=== PATIENT | male | born 1935 | race Caucasian/White ===

== ENCOUNTER 2018-08-20 08:37 | Emergency (ER) | payer MEDICARE, OTHER ==
--- OUTSIDE RECORDS SUMMARY | 2018-08-20 08:57 | XMS REPORT ---
:1935 External Reference #:[id number] Author Organization [employer] Address [address] [facility] [place] [address] [place] [address] Phone [phone] Care Team Providers Name Role Phone Leandro Rodriguez MD Primary Care Physician Unavailable Payers Type Date Identification Numbers Payment Provider Subscriber Medicare Primary Policy Number: [id number] Medicare Fish Amezquita PayID: [id number] [address] [place] [address] Commercial Policy Number: [id number] [facility] Fish [place] PayID: [id number] [address] [place] [address] Problems Date Description Provider Status Onset: 08/14/2018 History of cerebrovascular Leandro Rodriguez, 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 Beatrice,FACP Onset: 08/14/2018 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, Active joint Beatrice,FACP Note: OA Onset: 08/14/2018 Orthostatic hypotension Leandro Rodriguez M.D.,FACP Active Family History Date Family Member(s) Problem(s) Comments Father Coronary Artery Disease (CAD) : (age 55 Years) Father due to [place] : (age 74 Years) Mother due to Natural Causes Mother Cervical Cancer Children 4 First Son Diabetes Type I Siblings 4 Social History Type Date Description Comments Marital Status Lives With Occupation Retired Cigarette Use Never Smoked Cigarettes ETOH Use 08/14/2018 Consumes 1 glass of wine per day Smoking Patient has never smoked Recreational Drug Use Denies Drug Use General Hx Text 4 kids Allergies, Adverse Reactions, Alerts Date Description Reaction Status Severity Comments 08/14/2018 Penicillins active Moderate Medications Medication Date Status Form Strength Qnty SIG Indications Ordering Provider Fludrocortisone 08/14/ Active Tablets 0.1mg 30tabs 1 by Leandro Acetate 2018 mouth Estrellita Rodriguez, every M.D.,FACP morning Eliquis 00/ Active Tablets 2.5mg 30tabs 1 tablet Leandro 0000 by mouth Estrellita Rodriguez, daily M.D.,FACP Immunizations CPT Code Status Date Vaccine Lot # [id number] Given 08/14/2018 Influenza Virus Vaccine, Quadrivalent, Split, [id number] Preservative Free Vital Signs Date Vital Result Comment 08/14/2018 Height 66 inches 5'6" Weight 128.00 lb Heart Rate 71 /min BP Systolic Sitting 80 mmHg BP Diastolic Sitting 50 mmHg BP Systolic Standing 102 mmHg pulse- 68 BP Diastolic Standing 70 mmHg pulse- 68 BP Systolic Lying Down 144 mmHg pulse- 60 BP Diastolic Lying Down 80 mmHg pulse- 60 BP Systolic Recheck 108 mmHg pulse- 60 BP Diastolic Recheck 60 mmHg pulse- 60 Body Temperature 96.9 F O2 % BldC Oximetry 97 % O2 was 80 when oximeter was first placed on BMI (Body Mass Index) 20.7 kg/m2 Results Description No Information Procedures Description No Information Plan of Care Future Appointment(s):01/04/2019 1:00 pm - Leandro Rodriguez M.D.,FACP [facility] 2:20 pm - Leandro Rodriguez M.D.,FACP at [facility]2018 - Leandro Rodriguez M.D., FACPI63.412 Cereb infrc due to embolism of left middle cerebral arteryComments: Discussed your history. Continue taking Eliquis 1x daily. Please request records from your past provider.G43.809 Other migraine, not intractable, without status migrainosusComments:Your symptoms should improve after raising your blood pressure.Please request records from your pastneurologist.I95.1 Orthostatic hypotensionComments:Begin taking Fludrocortisone 1x in the morning.
[2018-08-20 10:28] VITALS: BP 131/75
--- NOTE | 2018-08-20 13:14 | ED ---
Lower Extremity - HPI Summary HPI Summary: Patient is an 83-year-old male with history of hypotension, recently started on fludrocortisone 5 days ago presenting to the ED with bilateral lower extremity swelling and pain as well as insomnia. He states symptoms began approximately one day after starting the fludrocortisone. He has never had these symptoms in the past. He states he had one episode of "passing out" just following his first dose of fludrocortisone, but has not had a syncopal episode since that time. He is also denying any visual changes at this time as he was having just prior to starting the fludrocortisone. He denies chest pain, shortness of breath. 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 He is requesting to be taken off fludrocortisone at this time as he is experiencing side effects. - History of Current Complaint Chief Complaint: EDExtremityLower Stated Complaint: POSS ALLERGIC RXN Time Seen by Provider: 08/20/18 09:23 Hx Obtained From: Patient Onset of Pain: Minutes, Days Onset/Duration: Days Severity Initially: Moderate Severity Currently: Moderate Pain Intensity: 0 Pain Scale Used: 0-10 Numeric Timing: Constant Location: Is Discrete @ - bilateral lower ext swelling and burning pain in the ankles Associated Signs And Symptoms: Positive: Swelling Aggravating Factor(s): Standing, Ambulation Alleviating Factor(s): Nothing Able to Bear Weight: Yes - Risk Factors Gout Risk Factors: Age Over 40 Septic Arthritis Risk Factor: Negative, Extremes of Age - Allergies/Home Medications Allergies/Adverse Reactions: Allergies Allergy/AdvReac Type Severity Reaction Status Date / Time Penicillins Allergy Unknown Verified 08/20/18 08:43 Reaction Details PMH/Surg Hx/FS Hx/Imm Hx Previously Healthy: Yes Infectious Disease History: No Infectious Disease History: Denies: Traveled Outside the [place] in Last 30 Days - Social History Occupation: Unemployed Lives: With Family Alcohol Use: Occasionally Hx Substance Use: No Substance Use Type: Reports: None Hx Tobacco Use: No Smoking Status (MU): Never Smoked Tobacco Review of Systems Constitutional: Negative Negative: Fever, Chills, Fatigue, Skin Diaphoresis Negative: Palpitations, Chest Pain Negative: Shortness Of Breath, Cough Negative: Abdominal Pain, Vomiting, Diarrhea, Nausea Genitourinary: Negative Positive: no symptoms reported, see HPI Positive: Arthralgia Positive: Other - bilateral lower ext swelling and burning pain in the ankles Neurological: Negative All Other Systems Reviewed And Are Negative: Yes Physical Exam Triage Information Reviewed: Yes Vital Signs On Initial Exam: Initial Vitals Temp Pulse Resp BP Pulse Ox 96.5 F 71 16 138/86 100 08/20/18 08:43 08/20/18 08:43 08/20/18 08:43 08/20/18 08:43 08/20/18 08:43 Vital Signs Reviewed: Yes Appearance: Positive: Well-Appearing, Well-Nourished Skin: Positive: Warm, Skin Color Reflects Adequate Perfusion Head/Face: Positive: Normal Head/Face Inspection Eyes: Positive: EOMI, KRIS, Conjunctiva Clear Neck: Positive: Supple, No Lymphadenopathy Respiratory/Lung Sounds: Positive: Clear to Auscultation, Breath Sounds Present Cardiovascular: Positive: RRR, Pulses are Symmetrical in both Upper and Lower Extremities, Leg Edema Left, Leg Edema Right Musculoskeletal: Positive: Normal, Strength/ROM Intact, Other - pain in lower ext d/t swelling +3 Neurological: Positive: Speech Normal Psychiatric: Positive: Normal, Affect/Mood Appropriate Diagnostics - Vital Signs Vital Signs Temp Pulse Resp BP Pulse Ox 08/20/18 10:26 97.1 F 73 16 131/75 97 08/20/18 08:43 96.5 F 71 16 138/86 100 - Laboratory Lab Statement: Any lab studies that have been ordered have been reviewed, and results considered in the medical decision making process. Lower Extremity Course/Dx - Course Course Of Treatment: Patient is here stating he would like to be taken off the fludrocortisone, but was reading that he should not be discontinued this medication without tacking to a healthcare practitioner. I discussed the risks and benefits of staying on the fludrocortisone as well as taking him off the fludrocortisone. Currently he has not slept over the past 3-4 days and is also experiencing bilateral lower extremity swelling and pain, more specifically to the ankles. Denies any chest pain or pressure. He states he would like to be discontinued at this time. I have advised he can discontinue this medication, however will need to follow-up with Dr. Rodriguez or at least call his office tomorrow morning to make Dr. Rodriguez aware. I have also encouraged him to make arrangements for family members or friends to check in on him every several hours as he may have a syncopal episode. He is okay with this plan and discharge. - Diagnoses Differential Diagnosis/HQI/PQRI: Positive: Bursitis, Cellulitis, Gout, Sprain, Strain Provider Diagnoses: Medication reaction Discharge - Sign-Out/Discharge Documenting (check all that apply): Patient Departure - Discharge Plan Condition: Stable Disposition: HOME Referrals: Leandro Rodriugez MD [Primary Care Provider] - Additional Instructions: Please follow up with Dr. Rodriguez TOMORROW Please call the office Eat well and eat salt As discussed, discontinue this medication d/t side effects Please drink plenty of water If you develop any worsening symptoms, return to the ED immediately - Billing Disposition and Condition Condition: STABLE Disposition: Home
== END 2018-08-20 10:26 | disposition home or self-care (01) ==
LOC: ED 08:37
DX: T50.0X5A Adverse effect of mineralocorticoids and their antagonists, initial encounter (principal); R60.0 Localized edema; Y92.9 Unspecified place or not applicable
CPT/HCPCS: 99281

== ENCOUNTER 2018-09-17 09:14 | Emergency (ER) | payer MEDICARE, OTHER ==
[2018-09-17 09:36] VITALS: BP 114/69
--- NOTE | 2018-09-17 09:51 | UC ---
Complaint Male HPI - HPI Summary HPI Summary: Patient is 83-year-old gentleman who present today with problem with urination for past 3 weeks. He reports weak stream for over 3 weeks and since last night he has noticed burning sensation and increased frequency that he had to wake up every 2 hours last night. He denies any significant pain. He had similar episode 4-5 years ago and was seen by urologist. He is still able to maintain the stream and that is not trickling or hematuria. Feels that he is able to void completely empty his bladder Also notices some foul smell. Denies any fever, chills, cough chest pain or shortness of breath . No diaphoresis. Denies any abdominal pain , nausea or vomiting , diarrhea or constipation. 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 - History of Current Complaint Chief Complaint: UCGU Stated Complaint: URINARY COMPLAINT Time Seen by Provider: 09/17/18 09:30 Hx Obtained From: Patient Pain Intensity: 0 - Allergies/Home Medications Allergies/Adverse Reactions: Allergies Allergy/AdvReac Type Severity Reaction Status Date / Time Penicillins Allergy Unknown Verified 09/17/18 09:39 Reaction Details Home Medications: Home Medications Apixaban* [Eliquis] 2.5 mg PO 09/17/18 [History] PMH/Surg Hx/FS Hx/Imm Hx - Additional Past Medical History Additional PMH: History significant for hypotension for which he was prescribed a medication that caused insomnia , for which she was given a sleeping medication. And recently stopped both and has not taken any medication for his hypertension for past 4 days Previously Healthy: Yes Other Endocrine History: negative Other Cardiovascular History: negative Other Respiratory History: negative Other GI/ History: negative Other Neurological History: negative Other Psychological History: negative Other Cancer History: negative - Surgical History Surgical History: Yes Surgery Procedure, Year, and Place: knee replacement - Social History Alcohol Use: None Substance Use Type: None Smoking Status (MU): Never Smoked Tobacco Review of Systems Constitutional: Negative Skin: Negative Eyes: Negative ENT: Negative Respiratory: Negative Cardiovascular: Negative Gastrointestinal: Negative Genitourinary: Dysuria, Frequency, Urgency, Other - Weak stream during micturition Motor: Negative Neurovascular: Negative Musculoskeletal: Negative Neurological: Negative Psychological: Negative Is Patient Immunocompromised?: No All Other Systems Reviewed And Are Negative: Yes Physical Exam - Summary Physical Exam Summary: Physical Exam: Const: Appears well. No signs of apparent distress present. Alert and oriented x 3. Musculo: Walks with a normal gait. Head/Face: Atraumatic, normocephalic on inspection. Eyes: EOMI and PERRLA in both eyes. Conjunctivae clear. No discharge noted ENT: Hearing normal, TM normal appearing bilaterally . Respiratory: Respirations are unlabored. Lungs clear to auscultation bilaterally, no wheezing , rhonchi or rales noted . CVS: Regular rate and Rhythm, S1S2 normal , no murmurs identified. Extremities: Peripheral circulation is grossly normal. Pulses 2+ Abdomen : Soft non tender , nondistended , Bowel sounds present . No guarding , rebound tenderness or rigidity noted. Skin: No lesions or rash located on the upper extremities or on the lower extremities. Neuro: Cranial nerves II to XII intact, motor and sensory intact. DTR Intact bilaterally. Mood is normal. Affect is normal. ; No hernia identified, no testicular tenderness or swelling Per rectal exam: Slightly enlarged prostrate but nontender Triage Information Reviewed: Yes Vital Signs: Initial Vital Signs Temp 97.8 F 09/17/18 09:30 Pulse 69 09/17/18 09:30 Resp 18 09/17/18 09:30 BP 114/69 09/17/18 09:30 Pulse Ox 96 09/17/18 09:30 Vital Signs Reviewed: Yes Complaint Male Course/Dx - Course Course Of Treatment: During the visit today, we obtained POC urinalysis which demonstrated 3+ leukocyte esterase, nitrite positive and trace blood. We discussed the findings and further plan to treat the UTI with antibiotics I will prescribe the medication to the pharmacy . We also discussed that the peak urinary stream can be secondary to his prostrate but plan to hold off treating it at this time since he is already having hypotension and tamsulosin can cause hypotension is well. He will follow up with his primary care doctor and urologist for further evaluation of his prostrate. Patient expressed understanding . - Differential Dx/Diagnosis Provider Diagnoses: Urinary tract infection. Possible BPH(benign prostatic hyperplasia) Discharge - Sign-Out/Discharge Documenting (check all that apply): Patient Departure All imaging exams completed and their final reports reviewed: No Studies - Discharge Plan Condition: Stable Disposition: HOME Prescriptions: Nitrofurantoin Monohyd/M-Cryst [Macrobid 100 mg Capsule] 100 mg PO BID 5 Days # 10 cap Patient Education Materials: Urinary Tract Infection in Men (ED) Referrals: Leandro Rodriguez MD [Primary Care Provider] - 2 Days Wander Swan MD [Medical Doctor] - 1 Week Additional Instructions: Please start taking the medication as prescribed to the pharmacy . Follow up with your primary care doctor in 2 days. Please follow up with urology for the consult Return to Urgent care / ER if symptoms get worse. - Billing Disposition and Condition Condition: STABLE Disposition: Home
--- NOTE | 2018-09-20 09:26 | UC ---
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 Call and ask for first available appt if still symptomatic see PCP Discharge - Sign-Out/Discharge Documenting (check all that apply): Post-Discharge Follow Up All imaging exams completed and their final reports reviewed: No Studies - Discharge Plan Condition: Stable Disposition: HOME Prescriptions: Nitrofurantoin Monohyd/M-Cryst [Macrobid 100 mg Capsule] 100 mg PO BID 5 Days # 10 cap Patient Education Materials: Urinary Tract Infection in Men (ED) Referrals: Leandro Rodriguez MD [Primary Care Provider] - 2 Days Wander Swan MD [Medical Doctor] - 1 Week Additional Instructions: Please start taking the medication as prescribed to the pharmacy . Follow up with your primary care doctor in 2 days. Please follow up with urology for the consult Return to Urgent care / ER if symptoms get worse. - Billing Disposition and Condition Condition: STABLE Disposition: Home
== END 2018-09-17 10:17 | disposition home or self-care (01) ==
LOC: UCEAST 09:14
DX: N39.0 Urinary tract infection, site not specified (principal); Z96.659 Presence of unspecified artificial knee joint; Z79.01 Long term (current) use of anticoagulants; Z88.0 Allergy status to penicillin
CPT/HCPCS: 81003; 87086; 87088; 99212; G0463

== ENCOUNTER 2018-09-23 12:56 | Emergency (ER) | payer MEDICARE, OTHER ==
--- OUTSIDE RECORDS SUMMARY | 2018-09-23 13:01 | XMS REPORT ---
:1935 External Reference #:[id number] Author Organization [employer] Address [address] [place] [address] Phone [phone] Care Team Providers Name Role Phone Leandro Rodriguez MD Primary Care Physician Unavailable Payers Type Date Identification Numbers Payment Provider Subscriber Medicare Primary Policy Number: [id number] Medicare Fish Amezquita PayID: [id number] [address] [place] [address] Medigap Part B Expires: 2018 Policy Number: Medicare Fish Amezquita [id number] PayID: [id number] [address] [place] [address] Commercial Policy Number: [id number] 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 Beatrice,FACP Onset: 08/14/2018 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, Active joint CHEVY aBrron Note: OA Onset: 08/14/2018 Orthostatic hypotension Leandro Rodriguez M.D.,FACP Active Family History Date Family Member(s) Problem(s) Comments Father Coronary Artery Disease (CAD) : (age 55 Years) Father due to [place] : (age 74 Years) Mother due to [...] Ordering Provider Fludrocortisone 08/14/ Active Tablets 0.1mg 45tabs 1/2 by Leandro Acetate 2018 mouth Estrellita Rodriguez, every M.D.,FACP morning Eliquis 00/ Active Tablets 2.5mg 60tabs 1 tablet Leandro 0000 by twice Estrellita Rodriguez, daily M.D.,FACP Tylenol PM / Active Tablets take one Unknown 0000 tablet/ca psule by mouth at bedtime. as needed for pain Ambien 09/01/ Hx Tablets 10mg 30tabs take 1/2 G47. Leandro 2017 - to 1 Estrellita Rodriguez, 09/13/ tablet by Beatrice,FACSamantha 2018 mouth nightly at bedime as needed maximum daily dose of 1 per day Cephalexin 08/23/ Hx Capsules 500mg 21caps three Leandro 2018 - times a DDugn Rodriguez, 08/30/ day by Beatrice,FACP 2018 mouth Trazodone HCL 08/21/ Hx Tablets 50mg 30tabs take 1-2 G47. Carmencita 2017 - tablets Sanchez, 09/01/ by mouth M.D. 2018 at bedtime as needed for sleep Immunizations CPT Code Status Date Vaccine Lot # [id number] Given 09/15/2018 Pneumonia Vaccine [id number] Given 08/14/2018 Influenza Virus Vaccine, Quadrivalent, Split, [id number] Preservative Free [id number] Given 03/27/2015 Pneumococcal Conjugate Vaccine 13 Valent For Intramuscular Use Vital Signs Date Vital Result Comment 09/13/2018 Height 66 inches 5'6" Weight 134.00 lb Heart Rate 59 /min BP Systolic Sitting 110 mmHg BP Diastolic Sitting 64 mmHg Body Temperature 96.4 F O2 % BldC Oximetry 89 % BMI (Body Mass Index) 21.6 kg/m2 08/23/2018 Height 66 inches 5'6" Weight 134.00 lb Heart Rate 79 /min BP Systolic Sitting 100 mmHg BP Diastolic Sitting 56 mmHg Body Temperature 98.2 F O2 % BldC Oximetry 96 % BMI (Body Mass Index) 21.6 kg/m2 08/21/2018 Height 66 inches 5'6" Weight 132.00 lb Heart Rate 78 /min BP Systolic Sitting 98 mmHg BP Diastolic Sitting 62 mmHg O2 % BldC Oximetry 96 % BMI (Body Mass Index) 21.3 kg/m2 08/14/2018 Height 66 inches 5'6" Weight 128.00 [...] BMI (Body Mass Index) 20.7 kg/m2 Results Test Date Test Result H/L Range Note Poc Urinalysis 09/17/2018 Poc Glucose, Urine Negative Negative Poc Bilirubin, Urine Negative Negative Poc Ketone, Urine Negative Negative Poc Specific [place], Urine 1.015 1.010-1.030 Poc Blood, Urine Trace-intact Negative Poc pH, Urine 7.5 5-9 Poc Protein, Urine Negative Negative Poc Urobilinogen, Urine 0.2 Negative Poc Nitrite, Urine Positive Negative Poc Leukocytes, Urine 3+ Negative Poc Color, Urine Yellow Poc Clarity, Urine Cloudy 1 Laboratory test finding 08/24/2018 Uric Acid 3.9 mg/dL Low 4.4-7.6 2 Rheumatoid Factor < 10 IU/mL <15 3 C Reactive Protein 22.93 mg/L High <8.01 4 Erythrocyte Sed Rate 28 mm/Hr 0-40 5 Basic Metabolic Panel 08/24/2018 Sodium 138 mmol/L 135-145 Potassium 4.2 mmol/L 3.5-5.0 Chloride 103 mmol/L 101-111 Co2 Carbon Dioxide 32 mmol/L 22-32 Anion Gap 3 mmol/L 2-11 Glucose 109 mg/dL High 70-100 Blood Urea Nitrogen 21 mg/dL 6-24 Creatinine 0.70 mg/dL 0.67-1.17 BUN/Creatinine Ratio 30.0 High 8-20 Calcium 8.9 mg/dL 8.6-10.3 Egfr Non- 107.2 >60 Egfr 129.7 >60 6 Laboratory test finding 08/24/2018 Cortisol 17.03 g/dL 7 Lipid Profile (Trig/Chol/HDL) 08/24/2018 Triglycerides 66 mg/dL 8 Cholesterol 146 mg/dL 9 HDL Cholesterol 51.8 mg/dL 10 LDL Cholesterol 81 mg/dL 11 1 Dumpcart Driver: [id number] 2 FASTING 10 HOUR Copy Result to: NIAYAMILET ANTONY DPM ([id number]) 3 FASTING 10 HOUR Copy Result to: YAMILET REYNOSOM ([id number]) 4 FASTING 10 HOUR Copy Result to: YAMILET REYNOSOM ([id number]) 5 FASTING 10 HOUR Copy Result to: NIAKATHLEENJulianaYAMILETM ([id number]) 6 Because ethnic data is not always readily available, this report includes an eGFR for both -Americans and non- Americans. The National Kidney Disease Education Program (NKDEP) does not endorse the use of the MDRD equation for patients that are not between the ages of 18 and 70, are , have extremes of body size, muscle mass, or nutritional status, or are non- or non-. According to the National Kidney Foundation, irrespective of diagnosis, the stage of the disease is based on the level of kidney function: Stage Description GFR(mL/min/1.73 m(2)) 1 Kidney damage with normal or decreased GFR 90 2 Kidney damage with mild decrease in GFR 60-89 3 Moderate decrease in GFR 30-59 4 Severe decrease in GFR 15-29 5 Kidney failure <15 (or dialysis) 7 AM 8.7-22.4 PM <10 8 Desirable: <150 Borderline High: 150-199 High: 200-499 Very High: >500 9 Desirable: <200 Borderline High: 200-239 High: >239 10 Low: <40 Desirable: 40-60 High: >60 11 Desirable: <100 Near Optimal: 100-129 Borderline High: 130-159 High: 160-189 Very High: >189 Procedures Description No Information Encounters Type Date Location Provider CPT E/M Dx Office Visit 09/13/2018 2:20p [facility] Leandro Rodriguez, [address] I95.1 - [place] Javi Barron,FACP L03.115 Office Visit 08/23/2018 1:50p [facility] Leandro Rodriguez, 64263 L03.115 Medicine - [place] Caldwell M.D.,FACP I95.1 M10.9 Office Visit 08/21/2018 9:50a [facility] Carmencita Sanchez M.D. 68772 I95.1 - [place] [id number] G47.09 Office Visit 08/14/2018 1:40p [facility] Leandro Rodriguez, 93465 I63.412 Medicine - Tbfransico Caldwell M.D.,FACP G43.809 I95.1 Z23 Plan of Care Future Appointment(s):01/04/2019 1:00 pm - Leandro Rodriguez M.D.,FACP at [facility] - [address]/13/2018 - Leandro Rodriguez M.D.,FACPI95.1 Orthostatic hypotensionComments:Your BP readings are stable.Continue taking Fludrocortisone 1/2 tab daily. Continue taking Eliquis as prescribed for previous stroke.L03.115 Cellulitis of right lower limbComments:Your symptoms appears to have resolved.
--- OUTSIDE RECORDS SUMMARY | 2018-09-23 13:01 | XMS REPORT ---
:1935 External Reference #:[id number] Author Organization Resource Data Address [address] [place] [address] [place] [address] Phone [phone] Care Team Providers Name Role Phone Leandro Rodriguez MD Primary Care Physician Unavailable Payers Type Date Identification Numbers Payment Provider Subscriber Medicare Primary Policy Number: [id number] Medicare Fish Amezquita PayID: [id number] [address] [place] [address] Commercial Policy Number: [id number] [facility] Fish Amezquita PayID: [id number] [address] [place] [address] Problems Date Description Provider Status Onset: 08/14/2018 History of cerebrovascular Leandro Rodriguez, 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 Leandro 2017 to 1 Estrellita Rodriguez, tablet by Beatrice,CHEVY mouth nightly at bedime as needed maximum daily dose of 1 per day Fludrocortisone 08/14/ Active Tablets 0.1mg 30tabs 1 by Leandro Acetate 2018 mouth Estrellita Rodriguez, every M.D.,NELP morning Eliquis 00/ Active Tablets 2.5mg 60tabs 1 tablet Leandro 0000 by twice Estrellita Rodriguez, daily M.Estrellita,NELP Tylenol PM 00/ Active Tablets take one Unknown 0000 tablet/ca psule by mouth at bedtime. as needed for pain Cephalexin 08/23/ Hx Capsules 500mg 21caps three Leandro 2017 - times a Estrellita Rodriguez, 08/30/ day by Beatrice,CHEVY 2018 mouth Trazodone HCL 08/21/ Hx Tablets 50mg 30tabs take 1-2 G47. Carmencita 2018 - tablets Sanchez, 09/01/ by mouth M.DDung 2018 at bedtime as needed for sleep Immunizations CPT Code Status Date Vaccine Lot # [id number] Given 08/14/2018 Influenza Virus Vaccine, Quadrivalent, Split, [id number] Preservative Free Vital Signs Date Vital Result Comment 08/23/2018 Height 66 inches 5'6" Weight 134.00 [...] Test Date Test Result H/L Range Note Laboratory test finding 08/24/2018 Uric Acid 3.9 mg/dL Low 4.4-7.6 1 Rheumatoid Factor < 10 IU/mL <15 2 C Reactive Protein 22.93 mg/L High <8.01 3 Erythrocyte Sed Rate 28 mm/Hr 0-40 4 Basic Metabolic Panel 08/24/2018 Sodium 138 mmol/L 135-145 Potassium 4.2 mmol/L 3.5-5.0 Chloride 103 mmol/L 101-111 Co2 Carbon Dioxide 32 mmol/L 22-32 Anion Gap 3 mmol/L 2-11 Glucose 109 mg/dL High 70-100 Blood Urea Nitrogen 21 mg/dL 6-24 Creatinine 0.70 mg/dL 0.67-1.17 BUN/Creatinine Ratio 30.0 High 8-20 Calcium 8.9 mg/dL 8.6-10.3 Egfr Non- 107.2 >60 Egfr 129.7 >60 5 Laboratory test finding 08/24/2018 Cortisol 17.03 g/dL 6 Lipid Profile (Trig/Chol/HDL) 08/24/2018 Triglycerides 66 mg/dL 7 Cholesterol 146 mg/dL 8 HDL Cholesterol 51.8 mg/dL 9 LDL Cholesterol 81 mg/dL 10 1 FASTING 10 HOUR Copy Result to: YAMILET REYNOSO DPM ([id number]) 2 FASTING 10 HOUR Copy Result to: YAMILET REYNOSO DPM ([id number]) 3 FASTING 10 HOUR Copy Result to: YAMILET REYNOSO DPM ([id number]) 4 FASTING 10 HOUR Copy Result to: YAMILET REYNOSO DPM ([id number]) 5 Because ethnic data is not always readily [...] 15-29 5 Kidney failure <15 (or dialysis) 6 AM 8.7-22.4 PM <10 7 Desirable: <150 Borderline High: 150-199 High: 200-499 Very High: >500 8 Desirable: <200 Borderline High: 200-239 High: >239 9 Low: <40 Desirable: 40-60 High: >60 10 Desirable: <100 Near Optimal: 100-129 Borderline High: 130-159 High: 160-189 Very High: >189 Procedures Description No Information Encounters Type Date Location Provider CPT E/M Dx Office Visit 08/23/2018 [facility] Internal Leandro Rodriguez, [address]95 L03.115 1:50p Medicine - [place] Javi Barron,FACP I95.1 M10.9 Office Visit 08/21/2018 9:50a [facility] Internal Medicine Carmencita Sanchez M.D. 87933 I95.1 - [facility] T50.905A G47.09 Office Visit 08/14/2018 1:40p [facility] Internal Leandro Rodriguez, 81395 I63.412 Medicine - Tbfransico Caldwell M.D.,FACP G43.809 I95.1 Z23 Plan of Care Future Appointment(s):01/04/2019 1:00 pm - Leandro Rodriguez M.D.,FACP at [facility] Internal [facility] [address]/13/2018 2:20 pm - Leandro Rodriguez M.D.,FACP at [facility] Internal [facility] [address]/23/2018 - Leandro Rodriguez M.D., FACPL03.115 Cellulitis of right lower limbComments:Begin taking Cephalexin 3x daily.I95.1 Orthostatic hypotensionComments:Elevate your foot as needed to reduce your symptoms.Increase Eliquis 2.5 MG to 2x daily. Continue taking your other medications as prescribed.M10.9 Gout, unspecifiedComments:Complete bloodwork as discussed tomorrow morning.
--- NOTE | 2018-09-23 13:11 | UC ---
Head Injury HPI - HPI Summary HPI Summary: 83 yo male presents with fatigue, confusion, and hand numbness last night and earlier today. 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 Last night around 2300 he felt very fatigued and was speaking to his and began to find it difficult to find words and articulate himself. He verbalizes to me that he remembers thinking that he was having a stroke. He then went to bed and slept for 10 hours, which he says is very unlike him. This morning when he was preparing breakfast for his he began to have left hand numbness that lasted about a half hour before resolving. He tells me that about a year and a half ago he was in the hospital for knee surgery and began to have "stroke symptoms". He believes he was given tpa at that time and then placed on eliquis s/p. He has had no headaches, dizziness, vision changes, SOB, chest pain, abdominal pain, n/v. Denies head injury or LOC. He is currently being treated for a UTI with bactrim dx'd 2 days ago. - History Of Current Complaint Chief Complaint: UCGeneralIllness Stated Complaint: ARM TINGLING Time Seen by Provider: 09/23/18 13:10 Hx Obtained From: Patient Severity Currently: None Pain Intensity: 0 - Allergies/Home Medications Allergies/Adverse Reactions: Allergies Allergy/AdvReac Type Severity Reaction Status Date / Time Penicillins Allergy Unknown Verified 09/23/18 13:10 Reaction Details Home Medications: Home Medications Sulfamethox/Trimethoprim DS* [Bactrim DS 800/160 TAB*] 1 tab PO BID 09/23/18 [ History Confirmed 09/23/18] PMH/Surg Hx/FS Hx/Imm Hx - Additional Past Medical History Additional PMH: CVA - Surgical History Surgical History: Yes Surgery Procedure, Year, and Place: knee replacement - Family History Known Family History: Positive: None - Social History Occupation: Retired Lives: With Family Alcohol Use: None Substance Use Type: None Smoking Status (MU): Never Smoked Tobacco Review of Systems Constitutional: Fatigue Skin: Negative Eyes: Negative Respiratory: Negative Cardiovascular: Negative Gastrointestinal: Negative Genitourinary: Negative Motor: Negative Neurovascular: Negative Musculoskeletal: Negative Neurological: Numbness - left hand, Other - Trouble word finding Psychological: Negative All Other Systems Reviewed And Are Negative: Yes Physical Exam - Summary Physical Exam Summary: GENERAL: NAD. WDWN. No pain distress. SKIN: No rashes, sores, ulcers, masses, lesions. HEENT: Head: AT/NC Eyes: PERRLA. EOM intact. Conjunctiva clear without inflammation or discharge. Ears: Hearing grossly normal. TMs intact, no bulging, erythema, or edema. NECK: Supple. Nontender. No lymphadenopathy. CHEST: CTAB. No r/r/w. No accessory muscle use. Breathing comfortably and in no distress. CV: RRR. Without m/r/g. Pulses intact. Brisk cap refill. ABDOMEN: Soft. NTTP. No distention or guarding. No CVA tenderness. Bowel sounds present MSK: FROM in B/L UEs and LEs. LEFT UE 2/5 STRENGTH COMPARED TO RIGHT. NEURO: A&Ox3. 3 word recall, remote, recent memory, ability to follow 2-step directions, and attention intact. CN: II: Peripheral moody intact. Vision normal. III, IV, : EOMI. No nystagmus. PERRLA. V: Sensations intact and symmetric. Opens mouth and clenches teeth. VII: No facial asymmetry. Forehead wrinkles. Grins, shuts eyes, frowns, puffs cheeks. VIII: Hearing intact to finger rub. IX, X: Swallows and coughs. Uvula midline. XI: Shrugs shoulders. Turns head against resistance. XII: No tongue deviation Xdgvur-lt-faem are intact. Gait with normal base. Romberg: maintains balance, no pronator drift. Normal speech. No facial drooping. PSYCH: Age appropriate behavior. GCS 15 Triage Information Reviewed: Yes Vital Signs: Initial Vital Signs Temp 96.9 F 09/23/18 13:02 Pulse 111 09/23/18 13:02 Resp 24 09/23/18 13:02 BP 129/73 09/23/18 13:02 Pulse Ox 87 09/23/18 13:02 Vital Signs: Temp Pulse Resp BP Pulse Ox 99 F 60 20 130/80 98 09/23/18 13:57 09/23/18 13:57 09/23/18 13:57 09/23/18 13:57 10/27/18 13:57 Vital Signs Reviewed: Yes National Institutes Of Health - NIH Scale Level of Consciousness: Alert/Keenly Responsive Ask Patient the Month and His/Her Age: Both Correct Ask Pt to Open/Close Eyes and Stone Grader/Release Non-Paretic Hand: Both Correctly Best Gaze (Only Horizontal Eye Movement): Normal Visual Field Testing: No Visual Loss Facial Paresis-Pt to Smile & Close Eyes or Grimace Symmetry: Normal/Symmetrical Motor Function - Right Arm: No Drift-Holds 10 Seconds Motor Function - Left Arm: No Drift-Holds 10 Seconds Motor Function - Right Leg: No Drift-Holds 10 Seconds Motor Function - Left Leg: No Drift-Holds 10 Seconds Limb Ataxia-Must be out of Proportion to Weakness Present: Absent Sensory (Use Pinprick to Test Arms/Legs/Trunk/Face): Normal Best Language (Describe Picture, Name Items): No Aphasia Dysarthria (Read Several Words): Slurs Some Words Extinction and Inattention: No Abnormality Total Score: 1 Head Injury Course/Dx - Course Course Of Treatment: EK sinus bradycardia. No acute ischemia. No change from 2002. As read by Dr. Perry. Repeat vitals were much improved - I believe the inital vitals were inaccurate as pt was coming in from the rain without a coat/umbrella. I suspect the pt may have had a CVA or currently has an intracranial pathology. I discussed this at length with him with his present. Risks include permanent disability, progressing weakness, syncope, and . He verbalizes understanding of his potential dx and risks. I strongly advised him to be transferred via ambulance to the ED for further evaluation and treatment. He refused to go to the ED via ambulance or private car stating that he has to arrange for someone to take care of his . Pt signed out AMA. - Differential Dx/Diagnosis Provider Diagnoses: Fatigue. Left arm weakness. Hx of CVA Discharge - Sign-Out/Discharge Documenting (check all that apply): Patient Departure All imaging exams completed and their final reports reviewed: No Studies - Discharge Plan Condition: Fair Disposition: AGAINST MEDICAL ADVICE Referrals: Leandro Rodriguez MD [Primary Care Provider] - - Billing Disposition and Condition Condition: FAIR Disposition: Against Medical Advice
[2018-09-23 13:57] VITALS: BP 130/80
== END 2018-09-23 14:14 | disposition left against medical advice (07) ==
LOC: UCEAST 12:56
DX: R53.83 Other fatigue (principal); R53.1 Weakness; Z86.73 Personal history of transient ischemic attack (TIA), and cerebral infarction without residual deficits; Z88.0 Allergy status to penicillin
CPT/HCPCS: 93005; 99212; G0463

== ENCOUNTER 2018-09-23 15:34 | Emergency (ER) | payer MEDICARE, OTHER ==
--- NOTE | 2018-09-23 17:00 | ED ---
Neurological HPI - HPI Summary HPI Summary: Patient is a 83 y/o M w/ c/o neurological deficits. He states that he was doing a puzzle with his last night when he began to have difficulty completing his sentences. This episode is reported to have lasted a few minutes. This morning, the patient states he began to experiencing tingling at his left hand. All Sx are reported to have resolved at this point. He denies syncope. Patient also reports that he has been experiencing a lot of stress recently while caring for his after her recent stroke. On triage, pain is denied. Nothing is reported to aggravate/alleviate Sx. Home medications and allergies are reviewed. - History of Current Complaint Chief Complaint: EDNeurologicalDeficit Stated Complaint: CC TRANSFER/TINGLING IN HAND Time Seen by Provider: 09/23/18 16:36 Hx Obtained From: Patient Onset/Duration: Started hours ago - left hand tingling onset this morning, Started days ago - difficulty completing sentences onset yesterday, Resolved - difficulty completing sentences Timing: Intermittent Episodes Lasting: - minutes Current Severity: None Neurological Deficit Location: LUE - tingling at left hand Pain Intensity: 0 Pain Scale Used: 0-10 Numeric - 0/10 Character: Numbness/Tingling - left hand, Other: - difficulty completing sentences Aggravating: Nothing Alleviating: Nothing - Allergy/Home Medications Allergies/Adverse Reactions: Allergies Allergy/AdvReac Type Severity Reaction Status Date / Time Penicillins Allergy Unknown Verified 09/23/18 15:49 Reaction Details PMH/Surg Hx/FS Hx/Imm Hx Endocrine/Hematology History: Denies: Hx Diabetes, Hx Thyroid Disease Cardiovascular History: Denies: Hx Hypertension Respiratory History: Denies: Hx Asthma, Hx Chronic Obstructive Pulmonary Disease (COPD) GI History: Denies: Hx Ulcer - Surgical History Surgery Procedure, Year, and Place: knee replacement Infectious Disease History: No Infectious Disease History: Denies: Hx Hepatitis, Hx Human Immunodeficiency Virus (HIV), Traveled Outside the [place] in Last 30 Days - Family History Known Family History: Negative: Blood Disorder - Social History Alcohol Use: None Hx Substance Use: No Substance Use Type: Reports: None Hx Tobacco Use: No Smoking Status (MU): Never Smoked Tobacco Review of Systems Negative: Fever - on vitals, temp is 97.7 F Neurological: Other - tingling at left hand, difficulty completing sentences All Other Systems Reviewed And Are Negative: Yes Physical Exam - Summary Physical Exam Summary: Appearance: Well appearing, no pain distress Skin: warm, dry, reflects adequate perfusion Head/face: normal Eyes: EOMI, KRIS ENT: normal Neck: supple, non-tender Respiratory: CTA, breath sounds present Cardiovascular: RRR, pulses symmetrical Abdomen: non-tender, soft Bowel: present Musculoskeletal: normal, strength/ROM intact Neuro: normal, sensory motor intact, A&Ox3; GCS 15, NIH 0 Triage Information Reviewed: Yes Vital Signs On Initial Exam: Initial Vitals Temp Pulse Resp BP Pulse Ox 97.7 F 46 16 106/76 96 09/23/18 15:42 09/23/18 15:42 09/23/18 15:42 09/23/18 15:42 09/23/18 15:42 Vital Signs Reviewed: Yes Diagnostics - Vital Signs Vital Signs Temp Pulse Resp BP Pulse Ox 09/23/18 15:42 97.7 F 46 16 106/76 96 - Laboratory Result Diagrams: 09/23/18 18:09 09/23/18 18:09 Lab Statement: Any lab studies that have been ordered have been reviewed, and results considered in the medical decision making process. - Radiology CXR Radiology Interpretation Completed By: Radiologist Summary of Radiographic Findings: FINDINGS CONSISTENT WITH COPD, NO EVIDENCE FOR ACUTE FINDING. THIS REPORT WAS REVIEWED BY ED PHYSICIAN. - CT BRAIN CT CT Interpretation Completed By: Radiologist Summary of CT Findings: IMPRESSION: 1. NO EVIDENCE FOR GROSS ACUTE INFARCT, MASS EFFECT OR HEMORRHAGE. 2. ATROPHY AND FINDINGS CONSISTENT WITH MODERATE TO SEVERE CHRONIC SMALL VESSEL ISCHEMIC. CHANGES WHICH LIMITS THE STUDY. THIS REPORT WAS REVIEWED BY ED PHYSICIAN. - EKG 1350 Cardiac Rate: Bradycardia - rate of 57 BPM EKG Rhythm: Sinus Bradycardia Summary of EKG Findings: no acute changes NIH Scale - NIH Scale Level of Consciousness: Alert/Keenly Responsive Ask Patient the Month and His/Her Age: Both Correct Ask Pt to Open/Close Eyes and Manager Of Business/Release Non-Paretic Hand: Both Correctly Best Gaze (Only Horizontal Eye Movement): Normal Visual Field Testing: No Visual Loss Facial Paresis-Pt to Smile & Close Eyes or Grimace Symmetry: Normal/Symmetrical Motor Function - Right Arm: No Drift-Holds 10 Seconds Motor Function - Left Arm: No Drift-Holds 10 Seconds Motor Function - Right Leg: No Drift-Holds 10 Seconds Motor Function - Left Leg: No Drift-Holds 10 Seconds Limb Ataxia-Must be out of Proportion to Weakness Present: Absent Sensory (Use Pinprick to Test Arms/Legs/Trunk/Face): Normal Best Language (Describe Picture, Name Items): No Aphasia Dysarthria (Read Several Words): Normal Extinction and Inattention: No Abnormality Total Score: 0 Re-Evaluation - Re-Evaluation First Eval Re-Evaluation Time: 18:35 Comment: Patient's imaging was discussed. Patient states that he does not want to be admitted as he needs to go home to take care of his . This was discussed in front of the patient's chair upholsterer. Course/Dx - Course Course Of Treatment: Patient is a 83 y/o M w/ c/o neurological deficits. He states that he was doing a puzzle with his last night when he began to have difficulty completing his sentences. This episode is reported to have lasted a few minutes. This morning, the patient states he began to experiencing tingling at his left hand. He denies syncope. Physical exam was unremarkable, GCS 15, NIH 0. BRAIN CT. IMPRESSION: 1. NO EVIDENCE FOR GROSS ACUTE INFARCT, MASS EFFECT OR HEMORRHAGE. 2. ATROPHY AND FINDINGS CONSISTENT WITH MODERATE TO SEVERE CHRONIC SMALL VESSEL ISCHEMIC. CHANGES WHICH LIMITS THE STUDY. EKG showed sinus bradycardia with 57 BPM, no acute changes. CXR FINDINGS CONSISTENT WITH COPD, NO EVIDENCE FOR ACUTE FINDING. Bloodwork was obtained. 1835 - Patient's imaging was discussed. Patient states that he does not want to be admitted as he needs to go home to take care of his . This was discussed in front of the patient's chair upholsterer. He will be worked up as an outpatient and will follow up with neurologist. Patient is agreeable with this plan. Dx of TIA. - Diagnoses Provider Diagnoses: TIA (transient ischemic attack) Discharge - Sign-Out/Discharge Documenting (check all that apply): Patient Departure - discharge - Discharge Plan Condition: Stable Disposition: HOME Patient Education Materials: Transient Ischemic Attack (ED) Referrals: Charu Monique MD [Medical Doctor] - 3 Days Additional Instructions: FOLLOW UP WITH NEUROLOGIST IN THREE DAYS. RETURN TO ED FOR ANY NEW OR WORSENING SYMPTOMS. - Attestation Statements Document Initiated by Scribe: Yes Documenting Scribe: Wilfredo Kolenda Provider For Whom Scribe is Documenting (Include Credential): Juma Del Valle MD Scribe Attestation: Wilfredo Mayen , scribed for Juma Del Valle MD on 09/23/18 at 1857.
--- NOTE | 2018-09-23 17:05 | RAD ---
INDICATION: TIA. COMPARISON: Comparison is made with a prior MRI of the brain from September 12, 2003. TECHNIQUE: Contiguous axial sections of the brain were obtained from the skull base to the vertex without contrast. FINDINGS: The ventricles, cisterns and sulci are enlarged consistent with diffuse atrophy. There are multiple focal areas of decreased density in the subcortical and periventricular white matter suggestive of moderate to severe chronic small vessel ischemic changes. No mass effect is present. There is no evidence for hemorrhage. No significant focal osseous abnormality is seen. The visualized portion of the paranasal sinuses and mastoid air cells appear clear. The results of this examination were called to the referring clinician at 1658 hours. IMPRESSION: 1. NO EVIDENCE FOR GROSS ACUTE INFARCT, MASS EFFECT OR HEMORRHAGE. 2. ATROPHY AND FINDINGS CONSISTENT WITH MODERATE TO SEVERE CHRONIC SMALL VESSEL ISCHEMIC CHANGES WHICH LIMITS THE STUDY.
--- NOTE | 2018-09-23 17:13 | RAD ---
INDICATION: CVA. COMPARISON: Comparison is made with a prior chest x-ray study from October 10, 2003. TECHNIQUE: 2 portable films of the chest were obtained. FINDINGS: Cardiac and mediastinal contours appear to be within normal limits. The lungs are hyperinflated and clear. No pleural effusion is seen. There are bilateral old healed fractures of lower lateral ribs. IMPRESSION: FINDINGS CONSISTENT WITH COPD, NO EVIDENCE FOR ACUTE FINDING.
[2018-09-23 18:31] LABS: ABS Basophils 0 10^3/ul (0-0.2); ABS Eosinophils 0 10^3/ul (0-0.6); ABS Lymphocytes 1.3 10^3/ul (1.0-4.8); ABS Monocytes 0.7 10^3/ul (0-0.8); ABS Neutrophils 4.7 10^3/ul (1.5-7.7); ABS Nucleated RBC 0 10^3/ul; Eosinophil % 0.6 % (0-6); Hematocrit 39 % (42-52); Hemoglobin 13.2 g/dl (14.0-18.0); Mean Corpuscular HGB Conc 34 g/dl (31-36); Mean Corpuscular Hemoglobin 33 pg (27-31); Mean Corpuscular Volume 97 fL (80-94); Mean Platelet Volume 7.9 um3 (7.4-10.4); Nucleated Red Blood Cells % 0; Platelet Count 236 10^3/ul (150-450); Red Blood Count 4.02 10^6/ul (4.00-5.40); Red Cell Distribution Width 13 % (10.5-15); White Blood Count 6.7 10^3/ul (3.5-10.8)
[2018-09-23 18:50] VITALS: BP 134/84
[2018-09-23 18:50] LABS: EGFR Non-African American 73.6 (>60)
== END 2018-09-23 19:02 | disposition home or self-care (01) ==
LOC: ED 15:34
DX: G45.9 Transient cerebral ischemic attack, unspecified (principal); Z88.0 Allergy status to penicillin; R00.1 Bradycardia, unspecified; R53.83 Other fatigue; R53.1 Weakness; Z86.73 Personal history of transient ischemic attack (TIA), and cerebral infarction without residual deficits
CPT/HCPCS: 36415; 70450; 71045; 80053; 80061; 84484; 85025; 85730; 93005; 99212; 99283; G0463

== ENCOUNTER 2018-09-24 09:19 | Observation (INO) | payer MEDICARE, OTHER ==
--- NOTE | 2018-09-24 09:30 | ED ---
Neurological HPI - HPI Summary HPI Summary: Time seen by Dr. Juma Del Valle MD: [id number]. The patient is an 83 y/o M presenting to [facility] with a chief complaint of left-sided weakness and difficulty with ambulation starting this morning. He states that he slept well, but when he tried to get out of bed, he had trouble walking to the kitchen as he had an unsteady gait. He then noticed he was unable to raise his arms, so he sat down. He continued to have a suppression of motor movement on his left side. He additionally reports dizziness and blurred vision. He denies syncope. The weakness was since resolved, but he had a similar episode yesterday in which he presented to [facility] but left without complete workup. - History of Current Complaint Stated Complaint: WEAKNESS Time Seen by Provider: 09/24/18 09:22 Hx Obtained From: Patient Onset/Duration: Sudden Onset, Started hours ago - starting this morning when he woke up, Resolved Timing: Sudden Onset Onset Severity: Severe Current Severity: None Neurological Deficit Location: [facility] Pain Scale Used: 0-10 Numeric Character: Motor Weakness Aggravating: Nothing Alleviating: Nothing Associated Signs and Symptoms: Positive: Unsteady Gait, Weakness - left-sided, Dizziness - Allergy/Home Medications Allergies/Adverse Reactions: Allergies Allergy/AdvReac Type Severity Reaction Status Date / Time Penicillins Allergy Unknown Verified 09/23/18 15:49 Reaction Details Home Medications: Home Medications Tamsulosin CAP* [Flomax CAP*] 0.4 mg PO DAILY 09/24/18 [History Confirmed ] PMH/Surg Hx/FS Hx/Imm Hx Endocrine/Hematology History: Denies: Hx Diabetes, Hx Thyroid Disease Cardiovascular History: Denies: Hx Hypertension Respiratory History: Denies: Hx Asthma, Hx Chronic Obstructive Pulmonary Disease (COPD) GI History: Denies: Hx Ulcer Opthamlomology History: Denies: Hx Legally Blind EENT History: Denies: Hx Deafness - Surgical History Surgery Procedure, Year, and Place: knee replacement Infectious Disease History: Denies: Hx Hepatitis, Hx Human Immunodeficiency Virus (HIV) - Family History Known Family History: Negative: Cardiac Disease, Hypertension, Diabetes, Blood Disorder - Social History Lives: With Family Alcohol Use: None Hx Substance Use: No Substance Use Type: Reports: None Hx Tobacco Use: No Smoking Status (MU): Never Smoked Tobacco Review of Systems Positive: Blurred Vision Neurological: Other - POSITIVE: unable to raise arms, difficulty ambulating, dizziness; NEGATIVE: syncope Positive: Weakness - left-sided All Other Systems Reviewed And Are Negative: Yes Physical Exam - Summary Physical Exam Summary: Appearance: Well appearing, no pain distress Skin: warm, dry, reflects adequate perfusion Head/face: normal Eyes: EOMI, KRIS ENT: normal Neck: supple, non-tender Respiratory: CTA, breath sounds present Cardiovascular: RRR, pulses symmetrical Abdomen: non-tender, soft Bowel: present Musculoskeletal: normal, strength/ROM intact Neuro: normal, sensory motor intact, A&Ox3 NIH: 0 GCS: 15 Triage Information Reviewed: Yes Vital Signs Reviewed: Yes - Miguel A Coma Scale Best Eye Response: 4 - Spontaneous Best Motor Response: 6 - Obeys Commands Best Verbal Response: 5 - Oriented Coma Scale Total: 15 Diagnostics - Laboratory Lab Statement: Any lab studies that have been ordered have been reviewed, and results considered in the medical decision making process. - CT Head CTA CT Interpretation Completed By: Radiologist Summary of CT Findings: 1. No evidence for hemodynamically significant carotid stenosis. 2. No evidence for large vessel intracranial thrombus. 3. Atrophy and moderate to severe chronic small vessel ischemic changes. 4. Chronic ununited type II odontoid fracture. ED physician has reviewed this report. - EKG 0934 Cardiac Rate: NL - 69 BPM EKG Rhythm: Sinus Rhythm Summary of EKG Findings: PVCs. NIH Scale - NIH Scale Level of Consciousness: Alert/Keenly Responsive Ask Patient the Month and His/Her Age: Both Correct Ask Pt to Open/Close Eyes and Physician Credentialing Specialist/Release Non-Paretic Hand: Both Correctly Best Gaze (Only Horizontal Eye Movement): Normal Visual Field Testing: No Visual Loss Facial Paresis-Pt to Smile & Close Eyes or Grimace Symmetry: Normal/Symmetrical Motor Function - Right Arm: No Drift-Holds 10 Seconds Motor Function - Left Arm: No Drift-Holds 10 Seconds Motor Function - Right Leg: No Drift-Holds 10 Seconds Motor Function - Left Leg: No Drift-Holds 10 Seconds Limb Ataxia-Must be out of Proportion to Weakness Present: Absent Sensory (Use Pinprick to Test Arms/Legs/Trunk/Face): Normal Best Language (Describe Picture, Name Items): No Aphasia Dysarthria (Read Several Words): Normal Extinction and Inattention: No Abnormality Total Score: 0 Course/Dx - Course Course Of Treatment: The patient is an 83 y/o M presenting to [facility] with a chief complaint of left-sided weakness with associated unsteady gait, difficulty raising arms, and dizziness. He denies syncope. He presented to [facility] yesterday with similar symptoms. There were no significant findings upon exam. NIH: 0. GCS: 15. In the ED course, the patient was given Visipaque. Blood work obtained. EKG reveals PVCs. Head CTA is negative for carotid stenosis or large thrombus but shows ischemic changes and chronic type II odontoid fx. I spoke with Dr. Hernandez, hospitalist, who agreed to admit the patient at 10:30. He will be diagnosed with TIA. Patient understands need for admission and agrees with this plan. - Differential Dx Differential Diagnoses Neuro: Positive: Cerebrovascular Accident, Dysrhythmia, Intracranial Bleed, Transient Ischemic Attack - Diagnoses Provider Diagnoses: TIA (transient ischemic attack) - Physician Notifications Discussed Care Of Patient With: Ginger Hernandez - hospitalist Time Discussed With Above Provider: 10:00 Instructed by Provider To: Other - Dr. Hernandez will accept the patient for admission at 1030. I also spoke with Dr. Perry, radiology, at 1025 concerning Head CTA results. - Critical Care Time Critical Care Time: 30-74 min Discharge - Sign-Out/Discharge Documenting (check all that apply): Patient Departure - Patient will be admitted to [facility] for further care. - Discharge Plan Condition: Stable Disposition: ADMITTED TO [facility] Referrals: Leandro Rodriguez MD [Primary Care Provider] - - Billing Disposition and Condition Condition: STABLE Disposition: Admitted to [facility] - Attestation Statements Document Initiated by Eda: Yes Documenting Scribe: Terese Ross Provider For Whom Eda is Documenting (Include Credential): Dr. Juma Del Valle MD [employer] Attestation: Terese Mayen scribed for Dr. Juma Del Valle MD on 09/24/18 at 1138. Scribe Documentation Reviewed: Yes Provider Attestation: The documentation as recorded by the Terese otero accurately reflects the service I personally performed and the decisions made by me, Dr. Juma Del Valle MD
[2018-09-24] MEDS ORDERED: Iodixanol* (CONTRAST) 320 MG/ML 100 ML SDV IV ONE (10:07)
--- NOTE | 2018-09-24 10:30 | RAD ---
INDICATION: CVA. COMPARISON: Comparison is made with a prior CT of the brain from September 23, 2018. TECHNIQUE: A CT scan of the brain was performed without intravenous contrast enhancement followed by a CT angiogram of the head and neck with intravenous contrast following injection of 80 ml of Visipaque 320 nonionic contrast. Contiguous axial sections were obtained from the thoracic inlet through the skull vertex. Images were reconstructed in the coronal and sagittal planes and in a 3-D volume rendered format. The distal cervical internal carotid artery diameter is used as the denominator for stenosis measurement. FINDINGS: CT OF THE BRAIN WITHOUT CONTRAST: The ventricles, cisterns and sulci are prominent consistent with diffuse atrophy. There are multiple areas of decreased attenuation present in the subcortical and periventricular white matter most consistent with moderate to severe chronic small vessel ischemic changes within limits the evaluation. No other focal abnormality or mass effect is seen. There is no evidence for hemorrhage. RIGHT CAROTID: The common carotid artery is widely patent. There is mild to moderate soft and calcific plaque present in the carotid bulb and proximal internal carotid artery giving rise to approximately a 20% stenosis. The remaining internal carotid artery appears widely patent. LEFT CAROTID: The left common carotid artery is widely patent. There is very mild plaque present within the carotid bulb and proximal internal carotid artery without evidence for stenosis. VERTEBRALS: The vertebral arteries appear patent without evidence for high-grade stenosis or occlusion. CTA BRAIN: ANTERIOR CIRCULATION: The internal carotid, anterior and middle cerebral arteries appear patent without evidence for high-grade stenosis or occlusion. POSTERIOR CIRCULATION: The vertebral, basilar and posterior cerebral arteries appear patent without evidence for high-grade stenosis or occlusion. The right posterior cerebral artery arises from the posterior communicating artery consistent with normal variation. EVALUATION FOR ANEURYSM: No aneurysm or vascular malformation is seen. NECK: No significant enlarged lymph nodes are seen within the neck. The thyroid, parotid and submandibular glands appear to be within normal limits. LUNG APICES: The lung apices appear clear. SINUSES: The paranasal sinuses and mastoid air cells appear clear. BONES: There is an old ununited type II odontoid reaction or. The patient is status post laminectomy C3-C7. There is diffuse degenerative disc disease throughout the cervical spine. The results of this exam were discussed with the referring clinician at 1020 hours. IMPRESSION: 1. NO EVIDENCE FOR HEMODYNAMICALLY SIGNIFICANT CAROTID STENOSIS. 2. NO EVIDENCE FOR LARGE VESSEL INTRACRANIAL THROMBUS. 3. ATROPHY AND MODERATE TO SEVERE CHRONIC SMALL VESSEL ISCHEMIC CHANGES. 4. CHRONIC UNUNITED TYPE II ODONTOID FRACTURE. CPT II Codes: 3100F
[2018-09-24 12:12] LABS: ABS Basophils 0 10^3/ul (0-0.2); ABS Eosinophils 0.1 10^3/ul (0-0.6); ABS Monocytes 0.7 10^3/ul (0-0.8); ABS Neutrophils 4.8 10^3/ul (1.5-7.7); ABS Nucleated RBC 0 10^3/ul; Eosinophil % 0.8 % (0-6); Hematocrit 38 % (42-52); Hemoglobin 12.8 g/dl (14.0-18.0); Lymphocyte % 15.4 % (25-47); Mean Corpuscular HGB Conc 33 g/dl (31-36); Mean Corpuscular Hemoglobin 32 pg (27-31); Mean Corpuscular Volume 97 fL (80-94); Mean Platelet Volume 8.5 um3 (7.4-10.4); Nucleated Red Blood Cells % 0; Platelet Count 252 10^3/ul (150-450); Red Blood Count 3.96 10^6/ul (4.00-5.40); Red Cell Distribution Width 13 % (10.5-15); White Blood Count 6.6 10^3/ul (3.5-10.8)
[2018-09-24 12:18] LABS: INR 1.06 (0.77-1.02)
[2018-09-24] MEDS ORDERED: Acetaminophen TAB* 325 MG PO PRN (12:20)
[2018-09-24 12:23] LABS: EGFR Non-African American 64.3 (>60)
[2018-09-24] MEDS: Aspirin 81 mg CHEW TAB* 81 MG TAB.CHEW PO SCH (14:44)
--- NOTE | 2018-09-24 19:06 | HP ---
CC: Dr. Swan; Dr. Rodriguez; Dr. Monique * HISTORY AND PHYSICAL: DATE OF ADMISSION: 09/24/18 PRIMARY CARE PROVIDER: Dr. Rodriguez. UROLOGIST: Dr. Swan. CHIEF COMPLAINT: An episode of unsteady gait, left arm weakness and blurry vision that occurred upon getting out of bed today was transient and resolved. HISTORY OF PRESENT ILLNESS: Fish Amezquita is an 83-year-old male with history of recent diagnosis of orthostatic hypotension by Dr. Rodriguez a month ago. The patient was placed on Florinef due to frequent episodes of dizziness when walking. He stated that he tried using Florinef, but he could not sleep all night despite cutting the tablet into half and discontinued it eventually 2 weeks ago. In the past couple of weeks, he had some urinary symptoms and he went to [facility] for evaluation and at that point, his urine cultures grew actinomycosis on 09/17/18, which was thought to be maybe contamination. The patient was seen by Dr. Swan within the past week, who prescribed Bactrim for the treatment of actinomycosis. The patient also had a repeat urine culture on 09/21/18, which showed no growth. Dr. Swan also prescribed Flomax for the patient, which the patient had been using for the past 4 days or so. Yesterday, in the morning, the patient also presented to the ED after an episode of slurred speech after getting out of bed. That resolved and the patient refused to be admitted for the workup of TIA. 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 The patient also stated that when he was seen by Dr. Swan within the past week , Dr. Swan stated that the patient has enlarged prostate and urinary retention and a Lopez catheter needs to be inserted. The patient refused to have it inserted. The patient is going to be placed on overnight observation with a diagnosis of TIA. PAST MEDICAL HISTORY: 1. Urinary retention. The patient refused to have a Lopez inserted. 2. History of C-spine surgery in 2002, followed by a C-spine surgery in 2013. 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 3. 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 4. History of orthostatic hypotension. MEDICATIONS: Currently include: 1. Flomax 0.4 mg daily. 2. Bactrim DS 1 tablet b.i.d. 3. Eliquis 2.5 mg b.i.d. ALLERGIES: Include PENICILLIN. FAMILY HISTORY: Mother of "old age." Father at the age of 55 secondary to [place] and CHF. SOCIAL HISTORY: The patient denies any tobacco and drug use. He drinks an occasional glass of wine. He lives with his and he moved to the area from [place] within the past few months. 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 His surrogate is his daughter, who lives in [facility]. REVIEW OF SYSTEMS: Please see history of present illness. Positive for recent urinary symptoms and improved after the patient started Flomax. Positive for diagnosis of urinary retention, and the patient's refusal to have Lopez catheter placed. Positive for recent questionable UTI with actinomycosis, currently on Bactrim. At baseline, the patient walks with a small steps and wide gait, but without assistance of walker or a cane. The patient stated that he has lost approximately 30 pounds of weight in the past 4 years, but he has very good appetite. He exercises bicycle on a daily basis. He denies any chest pain, or shortness of breath. The patient has bilateral shoulder problems, left more than right and he has problems with shoulder immobility due to that. All the remaining 12 systems reviewed with the patient and were otherwise negative. PHYSICAL EXAMINATION GENERAL: The patient is a very pleasant 83-year-old male, who is in no acute distress. Alert, awake, and oriented x3. VITAL SIGNS: Blood pressure of 126/74, heart rate of 60 and regular, respiratory rate 14, oxygen saturation 97% on room air, temperature of 98.8. HEENT: Head: Atraumatic, normocephalic. Eyes: Pupils are equal, reactive to light and accommodation. Oropharynx is clear. Mucosa moist. NECK: Supple. No JVD. No bruits bilaterally. RESPIRATORY: Clear to auscultation bilaterally. CARDIOVASCULAR: Regular rate and rhythm. No murmur. ABDOMEN: Soft, nontender. Bowel sounds are present in all 4 quadrants. EXTREMITIES: There is no edema. Pulses are +2 bilaterally. There is no clubbing or cyanosis. NEUROLOGIC: On neuro evaluation, the patient has suspected problems with either rotator cuff or frozen shoulder. It is traumatic for him to raise his both arms above the head, which is chronic. Otherwise, yopeco-[id number] is noted to be symmetric bilaterally. His hand fence builder is strong bilaterally, 5/5. Cranial nerves II through XII are grossly intact. Speech is clear. Otherwise, motor strength is 5/5 in all 4 extremities. His gait is shuffling, now that is steady with one episode when the patient started swaying backwards and then he corrected himself. PSYCHIATRIC: On psychiatric evaluation, oriented x3 with no evidence of anxiety or depression. 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 DIAGNOSTIC STUDIES/LAB DATA: White blood cell count of 6.6, hemoglobin of 12.8 , hematocrit of 38, MCV of 97, and platelets of 252. Sodium was 132, potassium 4.2, chloride 100, carbon dioxide 24, BUN 19, creatinine 1.09. Liver function tests unremarkable. Lipid profile obtained yesterday showed triglycerides of 52, cholesterol 149, LDL of 81, and HDL of 57. Urinalysis was obtained last on 09/17/18, positive for nitrites and esterase at that point. CT angiogram of the head obtained on 09/24/18, shows "no evidence for hemodynamically significant carotid stenosis, and no evidence of large vessel intracranial thrombus. Atrophy and [id number] chronic small vessel ischemic changes. Chronic ununited type 2 odontoid fracture." The patient's EKG showed sinus rhythm with heart rate of 69 beats per minute with frequent PVCs. ST elevation in V2, likely due to artifact. Comparing with an EKG from 09/23/18, the ST elevation in V2 was not present at that point. ASSESSMENT AND PLAN: 1. Episodes in the past couple of days of neurologic symptoms upon awakening, getting up from bed. Yesterday, the patient had an episode of slurred speech; today, he had blurry vision, left arm weakness and unsteady gait. The patient feels back to baseline today, although he appears slightly unsteady on his feet. At this point, the differential is transient ischemic attack versus cerebrovascular accident versus symptomatic orthostatic hypotension. At this point, the patient is going to be placed on overnight observation on telemetry monitored bed with neuro checks. He is going to be started on baby aspirin on daily basis. CT angiogram of the head and neck was already obtained. We will obtain an MRI of the brain in the morning and echocardiogram with bubble study. I will also ask Dr. Monique from Neurology to assist with further management. 2. History of orthostatic hypotension. We will obtain orthostatic blood pressure in this patient and followup closely. At this point, he was not tolerant of Florinef. I am not sure if midodrine would be indicated at this point due to it being vasoconstrictor. Furthermore, it is possible that we could discontinue Flomax that could contribute to orthostatic hypotension, although the patient has significant urinary symptoms without it. 3. History of ischemic cerebrovascular accident. The patient had been on Eliquis, there is a possibility of history of atrial fibrillation in the past. At this point, the patient is rather a poor historian and unable to provide me with this information. Nevertheless, Eliquis is going to be continued. 4. For DVT prophylaxis, the patient is going to be placed on Eliquis. 5. The patient's code status is full and his surrogate is his daughter. 6. History of actinomycosis urinary tract infection. Bactrim is going to be continued. TIME SPENT: Approximately 70 minutes was spent on admission of this patient, more than half of that time was spent [id number] with the patient during the interview and physical exam. [id number]/[facility] #: [id number]
[2018-09-24] MEDS: Sulfamethox/Trimethoprim DS 800/160* TAB PO SCH (20:13)
[2018-09-24] MEDS: Apixaban* 2.5 MG TAB PO SCH (20:14)
--- NOTE | 2018-09-24 23:18 | CONS ---
CC: Dr. Leandro Rodriguez CONSULTATION REPORT: DATE OF CONSULT: 09/24/18 HISTORY OF PRESENT ILLNESS: Fish Amezquita is an 83-year-old gentleman with history of cervical laminectomy, bilateral knee replacements with his most recent knee replacement at [facility] in June 2017 complicated by stroke with blurred vision, slurred speech, treated with tPA, followed by Maximino who now presents with concern regarding stroke like symptoms. 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 In the setting of caregiving, he has had weight loss, had fatigue, and repeat syncope. He recently moved back to [place] where he had lived and worked with his . They had been very active in their correction traveling the country and being involved in the [employer]. After her stroke, he has dedicated his time 100% to taking care of her. They do have a house in [place], and are hoping to go down for the winter. As an outpatient, he has seen Dr. Rodriguez and outpatient, and records from [facility] were reviewed. He was seen initially in June for blurred vision, weight loss , and fatigue. Intermittent blurred vision, lightheadedness was noted. He was diagnosed with orthostatic hypotension. He was given Florinef in his July visit. Notes were made of seeing a previous neurologist in [place], who thought he had stress and anxiety. He was seen in the emergency room on for bilateral lower extremity swelling, pain, and insomnia. Florinef was stopped. He was seen in clinic by Dr. Rodriguez on 08/23/18 for right foot pain diagnosed with cellulitis, treated with cephalexin. He had been given in the interim trazodone for insomnia. He then tried Tylenol PM. Dr. Rodriguez encouraged him to change his Eliquis to b.i.d. dosing. His last visit with Dr. Rodriguez was on 09/13/18 where it was suggested that he stop wine (he had been drinking one glass a day).. His Florinef was reduced to half a tablet. The patient tells me he did completely stop his Florinef a week ago. He is afraid that this may have contributed to what happened. He indicates he has never stopped a medication on his own in the past, and feels very bad. Two nights ago, he was up in the middle of night at 3 in the morning with his and had difficulty getting her off the toilet. It took him an hour and a half. He usually gets up at midnight and 5 in the morning to take her to the bathroom on a regular basis. This morning when he got up at 5 a.m., he indicates his eyes were foggy, vision was blurry, he felt he was not walking well and it was hard to lift his left hand. He, at baseline, has had cervical surgery with Dr. Blackburn in 2002 for left C6-C7 radiculopathy. Dr. Rodrigues's consult with recurrent symptoms indicated atrophy and weakness in the biceps and triceps on the left hand side. Mr. Amezquita was unable to tell me if he had repeat surgery. Mr. Amezquita indicates he has not been taking care of himself, as he had to spend all his time taking care of his . He has lost 30 pounds since his . He indicates he does drink boost and eats ice cream. He has passed out secondary to exhaustion. He can bruise easily. He was taking aspirin with Eliquis in the past and had significant bruising and feelings of being cold. He has noted more problems with his right hand. When he is in cold weather, his right hand can get stuck in clenched position until he warms it up. There has been some mood swings in the last month, and he has gotten irritated and feels very bad about this. PAST MEDICAL HISTORY: Includes stroke postop in June 2017 at [facility] during which he had blurred vision, slurred speech and was treated with tPA. He has been on Eliquis since, albeit one a day. Orthostatic hypotension, cellulitis of the toe, insomnia, syncope, urinary retention. PAST SURGICAL HISTORY: He has had previous surgeries including cervical laminectomy with Dr. Blackburn in 2002 for left C6-C7 radiculopathy with recurrent symptoms for which he was seen in [place]. He had left knee replacement in 1988, right knee replacement in June 2017. More recently, he had seen Urology and was given Flomax. There was an issue with urinary retention. He refused to catheter. MEDICATIONS: That he takes as an outpatient include: 1. Eliquis which he is only taking 2.5 mg by mouth each day. 2. He is also on tamsulosin 0.4 mg p.o. daily. ALLERGIES: Include PENICILLIN, which caused anaphylaxis. SOCIAL HISTORY: He is , lives with his . He does not smoke. He stopped drinking 1 glass of red wine at night recently. FAMILY HISTORY: Includes father who of heart attack at 55, mother who had cervical cancer and at 74. He has 4 siblings who are healthy, 2 daughters and 2 sons of which one son has diabetes. REVIEW OF SYSTEMS: Vision changes are as mentioned above. He denies any change in speech, swallow. There has been decreased range of movements, stiffness of his neck. He has noticed weakness of his arms with new weakness today in his left arm. There has been no new numbness. He denies any new weakness to the legs. There has been no recent rashes. He has had bruising on medications. There has been no new focal joint pain. He denies any drenching night sweats or high fevers. For unknown reason, there has been a weight loss while caring for his . He indicates that recently his mood has declined. He does have some help at the house some few mornings. However, he finds it very challenging to do complete caregiving for his . He has sworn never to put her into a shelter. PHYSICAL EXAM: On examination, temperature is 97.8 degrees temporal, heart rate was 71, respiratory rate 17, saturation 99%, blood pressure was 115/71. He had regular cardiac rhythm. His lungs are clear to auscultation. There was no carotid bruit. He was awake, alert, thin-appearing, He was able to provide his history, but he could be tangential at times. His pupils were equal and responsive to light. It was hard to visualize his fundi. He had evidence of cataract with lens placement in the right eye. His facial expression, sensation and hearing were equal. Palate was upgoing. Tongue was midline. Sternocleidomastoid and trapezius were 5/5 in strength. He had decreased range of movement at his neck. There was atrophy of bilateral intrinsic hand muscles in particular FDI right greater than left. There was atrophy of left triceps and biceps. He had no pronator drift and gave good strength in his deltoids. His right arm was strong with exception of ulnar intrinsic hand muscles, which were weak at 4-/5 in the left arm. He was weak in his biceps 4-/5, triceps 4+/5 , ulnar intrinsic hand muscles 4-/5. Lower extremities, he gave good resistance that was equal. His vibration sensation was absent in his lower extremities, decreased at the second finger distal interphalangeal joint by 25 seconds bilaterally. He had hard time with proprioception at his toes. There was no clear asymmetry to pinprick, cold, or light touch. He indicates there was no length-dependent change in pinprick, but that cold was clearly decreased at least distal to the knee bilaterally. His reflexes were 2+ in the upper extremities despite the history of radiculopathy on the left and clear muscle atrophy. They were absent in the lower extremities with the exception of the right knee that was 2+. Toes were equivocal. He could do finger- to-nose and [id number] movement. When he walked, he had increased stance. His Romberg was wobbly. He could walk on his heels and his toe when holding on to the examiner; tandem was not attempted. DIAGNOSTIC STUDIES/LAB DATA: Data includes CBC with normal white count, hemoglobin and hematocrit were slightly low at 12.8 and 38 and platelets were 252. There was no left shift. Monocytes were elevated at 11.3. His sodium was 132, chloride was 100, glucose was elevated at 153 and total bilirubin was 1.1. His CTA of the brain and neck did not show any large vessel disease. However, CT of the brain showed severe small vessel ischemic disease in the periventricular subcortical region. These films were reviewed directly. 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 He now had episode of blurry vision, left arm weakness and decreased gait. He is admitted to telemetry for evaluation of transient ischemic attack versus stroke. He is on telemetry being monitored for atrial fibrillation. Eliquis is a b.i.d. medication for prevention of stroke in the setting of atrial fibrillation. We do not have any clear documented history of atrial fibrillation, and getting records from [facility] may be helpful. Temporarily Aspirin was provided, however this may need to be stopped given increased risk of bleed, and history. MRI of the brain is to be performed. On the CT, he has extensive small vessel ischemic disease, which may contribute to some of his tangential nature on his history. Echocardiogram with bubble study has been ordered for looking for cardioembolic source of stroke. I have also added fasting lipid profile, as well as hemoglobin A1c as his glucose is 153 today. I do question malnutrition. Vitamin B12 and Folate have been ordered. He is to get PT and OT. There is a history of orthostasis as an outpatient and syncope. I have encouraged p.o. fluids. There may be a component of malnutrition and decreased sleep. He is to get orthostatic vitals. On examination, there is profound decrease in vibration sensation, which is absent at the legs and decreased at the DIP and second finger of each hand by 25 seconds with retained upper extremities reflexes despite the fact he has had left upper extremity radiculopathy and atrophy of muscles in the left arm. He has profound decreased proprioception at the large toes and equivocal toes and a history of urinary retention and odontoid fracture, and previous cervical surgery. Accordingly, one must question if there may be a high cervical lesion or myelopathy. This could contribute to the findings on examination and orthostasis, and urinary retention. Differential diagnosis does include peripheral neuropathy, which could be worked up further as an outpatient. Because of the serious potential for myelopathy, MRI of the cervical spine has been ordered. Involvement of Social Work may be very helpful/ crucial. It is concerning that he is the sole caregiver in the setting of his clinical decline. Help with nutrition, Meals on Wheels and further help at home may be indicated. Education was provided to the patient at bedside regarding history and workup planned. TIME SPENT: Over an hour and a half was spent in patient care reviewing outpatient records, inpatient records with further discussion with hospitalist team planned. [id number]/[facility] #: [id number] MALINA
[2018-09-25] MEDS: Apixaban* 2.5 MG TAB PO SCH ×2 (08:53→22:07)
[2018-09-25] MEDS: Tamsulosin CAP* 0.4 MG PO SCH (08:53)
[2018-09-25] MEDS: Sulfamethox/Trimethoprim DS 800/160* TAB PO SCH ×2 (08:53→22:07)
[2018-09-25] MEDS: Aspirin 81 mg CHEW TAB* 81 MG TAB.CHEW PO SCH (08:53)
[2018-09-25] MEDS ORDERED: Apixaban* 2.5 MG TAB PO SCH (09:00)
--- NOTE | 2018-09-25 10:19 | ECHO ---
Patient: WILDER HALL [facility] [place] Rec#: [id number] : 1935 Date: 09/25/2018 Age: 83y Height: 175 cm / 68.9 in Weight: 61.24 kg / 135.0 lbs Sex: M BSA: 1.75 Room#: [facility] Admit Date#: 09/24/2018 Type: Inpatient Referring: Ginger Hernandez MD Reading: Nick Fermin MD Loader Demolder: Ena LeoROLDAN CC: Leandro Rodriguez MD Transthoracic Echocardiogram Indication: TIA BP: 130/64 HR: 67 Rhythm: NSR with PACs Findings History: Possible TIA/CVA associated with knee surgery 1.5 years ago. Technical Comments: The study quality is good. Completed at 1000. Left Ventricle: The left ventricular chamber size is normal. There is no left ventricular hypertrophy. Global left ventricular wall motion and contractility are within normal limits. There is normal left ventricular systolic function. The estimated ejection fraction is 55-60%. Abnormal left ventricular diastolic function is observed. There is an E to A reversal in the mitral valve flow pattern suggestive of diastolic dysfunction. Left Atrium: The left atrial chamber size is normal. Right Ventricle: Moderator Band present. The right ventricular cavity size is normal. The right ventricular global systolic function is normal. Right Atrium: The right atrial cavity size is normal. Interatrial septum appears intact without evidence of shunting. The bubble study is negative. A patent foramen ovale is not demonstrated with color Doppler and agitated contrast. Aortic Valve: The aortic valve is trileaflet. The aortic valve leaflets are mildly thickened. There is evidence of aortic sclerosis without stenosis. There is a trace of aortic regurgitation. There is no evidence of aortic stenosis. Mitral Valve: The mitral valve leaflets are mildly thickened. There is moderate mitral regurgitation. There is no evidence of mitral stenosis. Tricuspid Valve: The tricuspid valve leaflets are normal. There is mild tricuspid regurgitation. The right ventricular systolic pressure is estimated at 26 mmHg. No pulmonary hypertension is noted. There is no tricuspid stenosis. Pulmonic Valve: The pulmonic valve appears normal. There is mild pulmonic regurgitation. There is no pulmonic stenosis. Pericardium: There is no significant pericardial effusion. Aorta: There is borderline dilatation of the ascending aorta. There is no dilatation of the aortic arch. There is mild dilatation of the aortic root. Pulmonary Artery: The main pulmonary artery appears normal. Venous: The inferior vena cava appears normal in size. There is a greater than 50% respiratory change in the inferior vena cava dimension. Contrast: Normal saline was used as contrast for the bubble study. Images 69-71. Intravenous contrast was used to help determine presence of intracardiac shunting. Summary: There was not any prior study for comparison. Conclusions Global left ventricular wall motion and contractility are within normal limits. There is normal left ventricular systolic function. The estimated ejection fraction is 55-60%. Interatrial septum appears intact without evidence of shunting. A patent foramen ovale is not demonstrated with color Doppler and agitated contrast. There is a trace of aortic regurgitation. There is moderate mitral regurgitation. There is mild tricuspid regurgitation. No pulmonary hypertension is noted. There is no significant pericardial effusion. Measurements Name Value Normal Range RVIDd (AP) 2D 2.9 cm (0.9 - 2.6) RVDdMajor (2D) 3.9 cm (2.2 - 4.4) RAd ISD 4CH 4.6 cm (3.4 - 4.9) RA (A4C)W 3.6 cm (2.9 - 4.6) IVSd (2D) 0.9 cm (0.6 - 1) LVPWd (2D) 1 cm (0.6 - 1) LVIDd (2D) 4.6 cm (3.6 - 5.4) LVIDs (2D) 2.8 cm - LV FS (2D) 39 % (25 - 45) Aortic Annulus 2.2 cm (1.4 - 2.6) Ao root diameter (2D) 3.6 cm (2.1 - 3.5) Ascending Ao 3.4 cm (2.1 - 3.4) Aortic arch 3.1 cm (1.8 - 3.4) LA dimension (AP) 2D 3.4 cm (2.3 - 3.8) LAd ISD 4CH 4 cm (2.9 - 5.3) LA ISD 4CH W 4 cm (2.5 - 4.5) Name Value Normal Range LA ESV BP (A/L) index 26 ml/m2 - Name Value Normal Range MV E-wave Vmax 0.6 m/sec - MV deceleration time 243 msec - MV A-wave Vmax 1 m/sec - MV E:A ratio 0.6 ratio - LV septal e' Vmax 0.08 m/sec - LV lateral e' Vmax 0.06 m/sec - LV E:e' septal ratio 7.51 ratio - Name Value Normal Range AV Vmax 1.2 m/sec - AV VTI 20.4 cm - AV peak gradient 6 mmHg - AV mean gradient 2 mmHg - LVOT diameter 2 cm - LVOT Vmax 0.9 m/sec - LVOT VTI 18 cm - LVOT peak gradient 3 mmHg - LVOT mean gradient 2 mmHg - LUPE Vmax 0.5 m/sec - Name Value Normal Range TR Vmax 2.4 m/sec - TR peak gradient 23 mmHg - RAP 3 mmHg - RVSP 26 mmHg - IVC diameter 2.07 cm - Name Value Normal Range PV Vmax 1.2 m/sec - PV peak gradient 6 mmHg - PA end-diastolic Vmax 1 m/sec - PA end-diastolic pressur4 mmHg -
[2018-09-25] MEDS ORDERED: NS 0.9% 500 ML* 500 ML IV ONE (12:00)
--- NOTE | 2018-09-25 15:57 | RAD ---
Indication: TIA. Loss of vibration sensation. Question myelopathy. Comparison: September 12, 2003 MRI. Technique: Modeliniaa 1.5 Sienna HC953B with GEM suite. Noncontrast MRI cervical spine. Report: The cervical spinal cord is normal in patterns of signal intensity. No conspicuous spinal cord lesions or syringohydromyelia. Mild reactive edematous, fatty, and sclerotic bone marrow signal change secondary to degenerative spondylosis. No suspicious osseous lesions evident. 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 Slight apex anterior angulation at the dens fracture and hypertrophy of the transverse ligament and nuchal ligament at the C1-C2 articulation results in moderately severe acquired central canal stenosis new compared with the 2003 MRI. Negative for facet subluxation at any level. Diffuse advanced degenerative spondylosis and facet joint osteoarthritis. C2-C3: Uncinate process spurring and facet joint osteoarthritis results in mild bilateral foraminal stenosis. C3-C4: Uncinate process spurring and facet joint osteoarthritis results in moderate bilateral foraminal stenosis. C4-C5: Uncinate process spurring and facet joint osteoarthritis results in moderately severe bilateral foraminal stenosis. C5-C6: Uncinate process spurring and facet joint osteoarthritis results in moderately severe bilateral foraminal stenosis. C6-C7: Uncinate process spurring and facet joint osteoarthritis results in moderately severe RIGHT and moderate LEFT foraminal stenosis. Dorsal spondylitic ridging disc complex and posterior ligament hypertrophy results in mild acquired central canal stenosis. C7-T1: Uncinate process spurring and facet joint osteoarthritis results in mild RIGHT unilateral foraminal stenosis. IMPRESSION: #. 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 #. Slight apex anterior angulation at the dens fracture and hypertrophy of the transverse ligament and nuchal ligament at the C1-C2 articulation results in moderately severe acquired central canal stenosis new compared with the 2002 MRI. #. No signal abnormality at the cervical spinal cord to indicate myelomalacia. #. Multilevel foraminal stenosis as described with only mild interval worsening compared with the 2003 exam.
--- NOTE | 2018-09-25 16:51 | PN ---
Subjective Date of Service: 09/25/18 Interval History: In AM, pt had episode of L facial droop, slurred speech and left arm drift that lasted 10 minutes. At time of my exam, pt in no acute distress, no L facial droop, slurred speech, or left arm drift. Pt denies shortness of breath, chest pain, headache, dizziness, blurred vision, Abdominal pain, N/V/D, dysuria, numbness or tingling in extremities or focal weakness. Objective Active Medications: Acetaminophen (Tylenol Tab*) 650 mg PO Q4H PRN PRN Reason: FEVER/PAIN Apixaban (Eliquis) 2.5 mg PO BID [facility] Last Admin: 09/25/18 08:53 Dose: 2.5 mg Aspirin (Aspirin 81 Mg Chew Tab*) 81 mg PO DAILY [facility] Last Admin: 09/25/18 08:53 Dose: 81 mg Tamsulosin HCl (Flomax Cap*) 0.4 mg PO DAILY [facility] Last Admin: 09/25/18 08:53 Dose: 0.4 mg Trimethoprim/Sulfamethoxazole (Bactrim Ds 800/160 Tab*) 1 tab PO BID [facility] Last Admin: 09/25/18 08:53 Dose: 1 tab Oxygen Devices in Use Now: None Eyes: No Scleral Icterus, PERRLA Ears/Nose/Mouth/Throat: NL Teeth, Lips, Gums, Mucous Membranes Moist Neck: NL Appearance and Movements; NL JVP, Trachea Midline Respiratory: Symmetrical Chest Expansion and Respiratory Effort, Clear to Auscultation Cardiovascular: NL Sounds; No Murmurs; No JVD, No Edema Abdominal: NL Sounds; No Tenderness; No Distention Extremities: No Edema, No Clubbing, Cyanosis Skin: No Rash or Ulcers, No Nodules or Sclerosis Neurological: Alert and Oriented x 3, NL Sensation, NL Muscle Strength and Tone Lines/Tubes/Other Access: Clean, Dry and Intact Peripheral IV Nutrition: Taking PO's Result Diagrams: 09/24/18 09:37 09/24/18 09:33 Assess/Plan/Problems-Billing Assessment: - Patient Problems (1) Neurological complaint Current Visit: Yes Status: Acute Code(s): R29.90 - UNSPECIFIED SYMPTOMS AND SIGNS INVOLVING THE NERVOUS SYSTEM SNOMED Code(s): 550867358 Comment: - Pt has been having daily episodes of slurred speech, left arm weakness, and gait abnormalities, each lasting less than 10 minutes. At the time of our evaluation after today's episode, NIH stroke scale was 0, so not tpa candidate. - Differentials include TIA vs Orthostatic Hypotension vs seizure activity - Pt is being followed by Dr. Kline who has ordered an EEG. MRI cervical spine and MRI brain pending final read. Echo with normal EF and no evidence of PFO. CT angiogram with small vessel ischemic disease. - Pt is currently on aspirin 81mg daily as well as eliquis, which he was started after prior CVA at [facility]. Will continue and obtain records to see if this was in the setting of afib, as pt is unsure. - LDL 79. Discussed with Dr Kline. Statin not indicated at this time. (2) Orthostatic hypotension Current Visit: Yes Status: Acute Code(s): I95.1 - ORTHOSTATIC HYPOTENSION SNOMED Code(s): 76221138 Comment: - Pt has known history of orthostatic hypotension and had positive orthostatic vitals here, with drop of 20 SBP (120s-->100s) from sitting to standing. Was stated on [facility] as an outpatient, but pt did not tolerate and discontinued due to insomnia and edema. Pt is on flomax for his urinary retention, which could also be contributing to hypotension, however pt has significant urinary symptoms without the medication. - Given 500mL bolus today to support BP - BP duuring episode was 118/88 (3) Urinary retention Current Visit: Yes Status: Acute Code(s): R33.9 - RETENTION OF URINE, UNSPECIFIED SNOMED Code(s): 706799837 Comment: - Pt has history of urinary retention. Voiding well on flomax, however this could be contributing to his orthostatic hypotension. Can continue for now and discuss additioanl options like nunez placement. Has been seen by Dr. Sánchez as outpatient who recommended this. (4) UTI (urinary tract infection) Current Visit: Yes Status: Acute Comment: - Will obtain records to discern how long pt has been on abx therapy. Can consider d/c if course complete, espiecially as pt is on Bactrim and there is a concern for seizures. Pt no longer compaining of dysuria. - Afebrile w/o leukocytosos (5) Anemia Current Visit: Yes Status: Acute Code(s): D64.9 - ANEMIA, UNSPECIFIED SNOMED Code(s): 696718978 Comment: - Macrocytic hypochromic, 12.8/38. No evidence of acute blood loss. - Folate 17.73. B12 low normal, 307. Methylmalonic acid pending. (6) DVT prophylaxis Current Visit: Yes Status: Acute Code(s): SHR3568 - SNOMED Code(s): 620590446 Comment: - Pt is on eliquis (7) Full code status Current Visit: Yes Status: Acute Code(s): Z78.9 - OTHER SPECIFIED HEALTH STATUS SNOMED Code(s): 520301827
--- NOTE | 2018-09-25 16:58 | RAD ---
INDICATION: TIA. COMPARISON: Comparison is made with a prior CT of the brain from September 23, 2015. TECHNIQUE: Sagittal T1, axial T1, T2, susceptibility, FLAIR and diffusion weighted images were obtained. FINDINGS: The ventricles, cisterns and sulci are prominent consistent with diffuse atrophy. There are prominent areas of increased signal intensity on T2-weighted images present within the subcortical and periventricular white matter most consistent with moderate to severe chronic small vessel ischemic changes. No areas of restricted diffusion are present. There is no evidence for infarct or hemorrhage. The paranasal sinuses and mastoid air cells appear clear. There is a chronic ununited type II odontoid fracture. IMPRESSION: 1. NO EVIDENCE FOR ACUTE INTRACRANIAL ABNORMALITY. 2. FINDINGS CONSISTENT WITH MODERATE TO SEVERE CHRONIC SMALL VESSEL ISCHEMIC CHANGES. 3. CHRONIC UNUNITED TYPE II ODONTOID FRACTURE.
--- NOTE | 2018-09-26 01:30 | PN ---
NEUROLOGY PROGRESS REPORT: DATE OF SERVICE: 09/25/18 REASON FOR NEUROLOGICAL EVALUATION AND CONSULTATION: Due to transit episode of left facial weakness, slurred speech, and paresthesias involving the left upper and lower extremity. PRIMARY PROVIDER: Francia Laughlin NP BRIEF HISTORY OF PRESENT ILLNESS: Fish Amezquita is an 83-year-old man with history of cervical laminectomy, bilateral knee replacement, who had an ischemic stroke in 2017 treated with tPA and was placed on low dose Eliquis. He was evaluated by Dr. Monique yesterday. I personally reviewed her note. The patient had symptoms of intermittent blurry vision, left arm weakness, and decreased gait. He had another episode today where he was talking to the bedside nurse and he developed sudden onset of left facial droop and slurred speech. He did not have any associated symptoms of arm weakness or paresthesias. This lasted for 4-5 minutes. He has had a positive abnormal orthostatic vitals as an outpatient and during this hospitalization as orthostatic vitals obtained on 09/24/18 showed systolic blood pressure of 122 in supine position and 102 standing up. The heart rate was only checked when the patient was in the supine position. SUBJECTIVE: The patient is resting comfortably today at bedside next to his son. The son who witnessed event that took place today. The son stated that the patient sat in a chair not feeling well and feeling slightly dizzy. He then suddenly developed blurriness of both vision, no double vision and slurred speech. He knew what to say and heard his speech become slurred. He also felt that the left side of the face was droopy, this lasted for approximately 5 minutes. He denied any headaches. He denied any current neurological deficits. The patient stated that he was recently started on Bactrim approximately 10 days ago for a urinary tract infection. 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 He denied any focal weakness. He has lost approximately 25 pounds over the last 4 years. He tries to eat regular. LABORATORY DATA: WBC of 6.6, hemoglobin of 12.8, hematocrit of 38, MCV of 97, platelets of 252. INR 1.06. Sodium 132, chloride of 100, glucose 153, A1c 5.6. Vitamin B12 is 307, folate is 17.73, HDL 55, LDL 79 and total cholesterol of 146. IMAGING STUDIES: I reviewed the CT head and CTA of the head that was completed on 09/24/18. There was no evidence for hemodynamically significant carotid stenosis or large vessel occlusion. There is atrophy and moderate to severe chronic small vessel ischemic changes. There was also an old type 2 odontoid fracture. He is status post laminectomy from C3-C7. The patient had a transthoracic echo completed on 09/25/18 and showed global left ventricular wall motion and contractility within normal limits. The ejection fraction is 50 % to 60%. Patent foramen ovale is not demonstrated with color Doppler and agitated contrast. He has moderate mitral regurgitation. He has no pericardial effusion. REVIEW OF SYSTEMS: He denied any chest pain, shortness of breath or palpitation. MEDICATIONS: 1. Acetaminophen 650 mg p.o. every 4 hours. 2. Eliquis 2.5 mg p.o. twice daily. 3. Aspirin 81 mg daily. 4. Tamsulosin 0.4 mg p.o. daily. 5. Bactrim 1 tablet by mouth twice daily. PHYSICAL EXAMINATION: Vitals: Temperature 97.5, pulse rate is 67, respiratory rate of 16, blood pressure of 121/70. General: Thin frail-appearing man, in no acute distress. Resting comfortably in a chair next to his son. Head is atraumatic, normocephalic. Eyes: Conjunctivae/sclerae are clear. Neck is supple, symmetrical with no carotid bruit. Lungs: Clear to auscultation bilaterally. Cardiovascular: Regular rate and rhythm with normal S1, S2. Extremities: Restricted range of motion of the left upper extremity due to shoulder pain. Skin: No skin lesion or laceration. Psych: Affect is broad and normal mood. Mental Status: Awake and alert, oriented to person, place, and time and general circumstance. Speech and language including expression, naming, repetition, and comprehensions were assessed and found to be normal. No dysarthria. He does seem to repeat himself at times. Cranial Nerves: Pupil equal, round and reactive to light. Extraocular muscles are intact, no facial asymmetry. Tongue is symmetrical and midline with no atrophy or fasciculation. Motor: Right/left no abnormal movements. No pronator drift. He does have slightly increased tone in the upper extremities. He seems to have fasciculations in the left triceps bilaterally. He has atrophy in the first dorsal interosseous muscles bilaterally. Strength is 5/5 throughout except for restricted range of motion and reduced strength in the left shoulder , abduction is graded as 4/5 and bilateral finger abduction was graded 4- /5. Otherwise, 5/5 in the lower extremities except for great toe extension is 4/5. Reflexes right/left brachioradialis 1/1, biceps 1/1, triceps 1/1, patella 2/1, ankle 0/0, plantarflex/flexor. Vibratory sensation at the great toes abnormally present in the media malleolus for 5 seconds. Coordination: Normal [id number]-[id number] bilaterally. Gait: Wide based. No ataxia. ASSESSMENT AND RECOMMENDATIONS: 1. Intermittent, transient left hemiparesis, slurred speech, left facial weakness - we need to evaluate for transient ischemic attack to the right middle cerebral artery versus stroke in that region. Given the improved symptoms, the formal diagnosis is likely here. NIH stroke scale is 0. The patient would not be a candidate for IV tPA given that he is on Eliquis nor he is candidate for mechanical thrombectomy since he does not have a large vessel occlusion. I am concerned that the patient may be also having transit motor focal seizures in the setting of Bactrim use. Depending on the results of the MRI, I recommend proceeding with an EEG. I also recommend discontinuing Bactrim and using other antibiotic agents for the previous history of urinary tract infection. 2. Presumed atrial fibrillation. We are still waiting on records from [facility] for the last year's episode of suspected stroke due to atrial fibrillation. I am not quite sure why he was on Eliquis only 2.5 mg daily. He is currently taking the recommended dose of Eliquis 2.5 mg twice daily as well as aspirin 81 mg daily. He is tolerating the medication without any reported side effects. 3. Orthostatic hypotension. The patient has evidence of peripheral edema and I am concerned given his age that he may have underlying autonomic dysfunction. Other cause for orthostatic hypotension can be related to tamsulosin use, which can cause a drop in blood pressure. If the patient continues to have episode, consider switching the medication to a different agent and encourage increased IV fluid intake as well as compression stockings. 4. Cervical laminectomy and odontoid fracture - we defer to Neurosurgery. TIME SPENT: I spent a total of 40 minutes and greater than 50% was spent directly reviewing the medical chart, obtaining history, examining the patient, education, counseling, and discussing the treatment plan with the patient and son as mentioned above. The patient will require 1 more day of hospitalization for the further testing. [id number]/[facility] #: [id number] MALINA
[2018-09-26 06:17] LABS: ABS Basophils 0 10^3/ul (0-0.2); ABS Eosinophils 0.1 10^3/ul (0-0.6); ABS Lymphocytes 1.6 10^3/ul (1.0-4.8); ABS Monocytes 0.7 10^3/ul (0-0.8); ABS Neutrophils 3.9 10^3/ul (1.5-7.7); ABS Nucleated RBC 0 10^3/ul; Eosinophil % 1.7 % (0-6); Hematocrit 40 % (42-52); Hemoglobin 13.4 g/dl (14.0-18.0); Mean Corpuscular HGB Conc 34 g/dl (31-36); Mean Corpuscular Hemoglobin 33 pg (27-31); Mean Corpuscular Volume 96 fL (80-94); Nucleated Red Blood Cells % 0.1; Platelet Count 232 10^3/ul (150-450); Red Blood Count 4.13 10^6/ul (4.00-5.40); Red Cell Distribution Width 13 % (10.5-15); White Blood Count 6.3 10^3/ul (3.5-10.8)
[2018-09-26 06:33] LABS: EGFR Non-African American 81.2 (>60)
[2018-09-26] MEDS: Tamsulosin CAP* 0.4 MG PO SCH (07:53)
[2018-09-26] MEDS: Apixaban* 2.5 MG TAB PO SCH (07:53)
[2018-09-26] MEDS: Sulfamethox/Trimethoprim DS 800/160* TAB PO SCH (07:53)
[2018-09-26] MEDS: Aspirin 81 mg CHEW TAB* 81 MG TAB.CHEW PO SCH (07:54)
--- NOTE | 2018-09-26 13:22 | PN ---
Subjective Date of Service: 09/26/18 Interval History: Pt resting comfortably in chair. Wants to go home. Patient has not had any episodes of weakness, facial droop, or vision changes today. Denies headache, dizziness, unsteady gai, shortness of breath, chest pain, palpitations, N/V/D/C , dysuria, numbness or tingling in extremities. Objective Active Medications: Acetaminophen (Tylenol Tab*) 650 mg PO Q4H PRN PRN Reason: FEVER/PAIN Apixaban (Eliquis) 2.5 mg PO BID [facility] Last Admin: 09/26/18 07:53 Dose: 2.5 mg Aspirin (Aspirin 81 Mg Chew Tab*) 81 mg PO DAILY [facility] Last Admin: 09/26/18 07:54 Dose: 81 mg Tamsulosin HCl (Flomax Cap*) 0.4 mg PO DAILY [facility] Last Admin: 09/26/18 07:53 Dose: 0.4 mg Trimethoprim/Sulfamethoxazole (Bactrim Ds 800/160 Tab*) 1 tab PO BID [facility] Last Admin: 09/26/18 07:53 Dose: 1 tab Vital Signs - 8 hr 09/26/18 09/26/18 07:41 08:00 Temperature 97.7 F Pulse Rate 73 Respiratory 16 16 Rate Blood Pressure 104/81 (mmHg) O2 Sat by Pulse 98 Oximetry Oxygen Devices in Use Now: None Eyes: No Scleral Icterus, PERRLA Ears/Nose/Mouth/Throat: NL Teeth, Lips, Gums, Mucous Membranes Moist Neck: NL Appearance and Movements; NL JVP Respiratory: Symmetrical Chest Expansion and Respiratory Effort, Clear to Auscultation Cardiovascular: NL Sounds; No Murmurs; No JVD, RRR, No Edema Abdominal: NL Sounds; No Tenderness; No Distention Extremities: No Edema, No Clubbing, Cyanosis Skin: No Rash or Ulcers, No Nodules or Sclerosis Neurological: Alert and Oriented x 3, - - 5/5 strength in bilateral upper and lower extremeties. No facial droop appreciated. Finger to nose intact bilaterally. No pronator drift. No dysarthria. Lines/Tubes/Other Access: Clean, Dry and Intact Peripheral IV Nutrition: Taking PO's Result Diagrams: 09/26/18 06:02 09/26/18 06:02 Assess/Plan/Problems-Billing Assessment: - Patient Problems (1) Orthostatic hypotension Current Visit: Yes Status: Acute Code(s): I95.1 - ORTHOSTATIC HYPOTENSION SNOMED Code(s): 44373972 Comment: - Pt has known history of orthostatic hypotension and had positive orthostatic vitals here, with drop of 20 SBP (120s-->100s) from sitting to standing, which is likely the cause of his transient episodes of facial droop, weakness, and slurred speech. Was stated on florinef as an outpatient, but pt did not tolerate and discontinued due to insomnia and edema. Pt was recently started on flomax for his urinary retention on 09/21, which could also be contributing to hypotension. - After discussin with Dr. Swan, will discontinue the flomax and pt will follow up with him as an outpatient. (2) Neurological complaint Current Visit: Yes Status: Acute Code(s): R29.90 - UNSPECIFIED SYMPTOMS AND SIGNS INVOLVING THE NERVOUS SYSTEM SNOMED Code(s): 556579300 Comment: - Differentials include TIA vs Orthostatic Hypotension vs seizure activity - Pt has had 3 episodes of slurred speech, left arm weakness, and gait abnormalities, each lasting less than 10 minutes, once per day for past 3 days. NIH stroke scale was 0, so not tpa candidate. - Pt is being followed by Dr. Cardoso: MRI cervical spine and MRI brain pending final read. Echo with normal EF and no evidence of PFO. CT angiogram with small vessel ischemic disease. Was also concern for possible seizures in the setting of bactrim, so after discussing with Dr. Swan, bactrim was discontinued. EEG was done which did not show any new acute abnormalities. - Pt is currently on aspirin 81mg daily as well as eliquis 2.5mg BID, which he was started after prior CVA at [facility] in the setting of paroxysmal Afib - LDL 79. Discussed with Dr Cardoso. Statin not indicated at this time. (3) Urinary retention Current Visit: Yes Status: Acute Code(s): R33.9 - RETENTION OF URINE, UNSPECIFIED SNOMED Code(s): 830353846 Comment: - Pt has history of urinary retention. Was placed on flomax for urinary retention. Voiding well on flomax, however this could be contributing to his orthostatic hypotension. Discussed case with Dr. Sánchez, who has evaluated as an outpatient. Not candidate for nunez placement as post void residual in Dr Sánchez' s office was 25cc. Dr. Sánchez agrees with stopping flomax in the setting of hypotension and will follow up as outpatient. Discussed the possibility of finasteride, howver Dr Sánchez feel pt's prostate is not large enough to yield a benefit from this medication. (4) UTI (urinary tract infection) Current Visit: Yes Status: Acute Comment: - Discussed discontinuing bactrim with Dr. Sánchez given question of small focal seizures. He agreed with plan to d/c. Pt had negative urine culture in office on 09/21. Will follow up as outpatient. - Afebrile w/o leukocytosos (5) Anemia Current Visit: Yes Status: Acute Code(s): D64.9 - ANEMIA, UNSPECIFIED SNOMED Code(s): 990298901 Comment: - Macrocytic hypochromic, Trending up. No evidence of acute blood loss. - Folate 17.73. B12 low normal, 307. Methylmalonic acid pending. (6) Cervical spinal stenosis Current Visit: Yes Status: Acute Code(s): M48.02 - SPINAL STENOSIS, CERVICAL REGION SNOMED Code(s): 51168879 Comment: - MRI spine demonstrated moderately severe central canal stenosis - Pt decline neurosurgery evaluation at this time. Understands risks of not undergoing surgery. - Pt will start wearing soft collar that patient agrees to wear at all times except when sleeping. (7) Paroxysmal A-fib Current Visit: Yes Status: Acute Code(s): I48.0 - PAROXYSMAL ATRIAL FIBRILLATION SNOMED Code(s): 156557314 Comment: - Confirmed hx with [facility]. Anticoagulated with Eliquis 2.5mg BID. - In NSR on tele with rates in the 60s-70s. Not on rate control agent. (8) DVT prophylaxis Current Visit: Yes Status: Acute Code(s): FFP3698 - SNOMED Code(s): 701075207 Comment: - Pt is on eliquis (9) Full code status Current Visit: Yes Status: Acute Code(s): Z78.9 - OTHER SPECIFIED HEALTH STATUS SNOMED Code(s): 146905272 Status and Disposition: Discharge to home with VNA Attending: Scott Cruz
--- NOTE | 2018-09-26 13:22 | PN ---
Subjective Date of Service: 09/26/18 Length of Stay: 2 Days Neurology is following Mr. Amezquita for the evaluation and management of intermittent slurred speech, left arm paresthesia/weakness, and left facial droop. Interval History: Brief History: Mr. Amezquita is an 83-year-old man with history of cervical laminectomy from C3- C7, who had developed post-procedural stroke in 2017 after a knee replacement surgery. I confirmed today and spoke to Medical records at [facility] and they informed me that the patient was diagnosed with paroxysmal atrial fibrillation and was started on Eliquis 2.5 mg twice daily. He has been only taking 1 tablet daily. In addition, he received a refill on March 06, 2018. The patient presented to [facility] with symptoms of intermittent blurry vision, left arm weakness, and gait imbalance. He had an episode where he had left facial droop and slurred speech that lasted 4 minutes yesterday. He has been found to have positive orthostatic vitals during this admission with a drop in his systolic from 122 to 102 upon standing. Please note that the patient was recently started on Bactrim a few days ago for a urinary tract infection and was put in Tamsulosin for urinary retention. Subjective: The patient is sitting comfortable. He wants to go home. He denied any CP, SOB , or palpitation. He denied headache, visual disturbance, neck pain, or new weakness. He reported having chronic weakness in the left upper extremity and the right hand. Review of Systems: As per subjective. Objective Active Medications: Acetaminophen (Tylenol Tab*) 650 mg PO Q4H PRN PRN Reason: FEVER/PAIN Apixaban (Eliquis) 2.5 mg PO BID [facility] Last Admin: 09/26/18 07:53 Dose: 2.5 mg Aspirin (Aspirin 81 Mg Chew Tab*) 81 mg PO DAILY [facility] Last Admin: 09/26/18 07:54 Dose: 81 mg Tamsulosin HCl (Flomax Cap*) 0.4 mg PO DAILY [facility] Last Admin: 09/26/18 07:53 Dose: 0.4 mg Trimethoprim/Sulfamethoxazole (Bactrim Ds 800/160 Tab*) 1 tab PO BID [facility] Last Admin: 09/26/18 07:53 Dose: 1 tab Vital Signs 09/25/18 09/25/18 09/25/18 16:50 19:22 23:25 Temperature 97.8 F 98.9 F 98.9 F Pulse Rate 132 85 68 Respiratory 18 16 20 Rate Blood Pressure 110/67 100/66 117/67 (mmHg) O2 Sat by Pulse 95 97 99 Oximetry 09/26/18 09/26/18 09/26/18 03:20 07:41 08:00 Temperature 97.6 F 97.7 F Pulse Rate 61 73 Respiratory 16 16 16 Rate Blood Pressure 105/66 104/81 (mmHg) O2 Sat by Pulse 97 98 Oximetry Intake and Output Last 24 Hours 09/24/18 09/25/18 09/26/18 09/27/18 06:59 06:59 06:59 06:59 Intake Total 0 1750 300 Balance 0 1750 300 Weight 125 lb 1.6 oz 124 lb 11.2 oz Intake: Oral 0 1750 300 Other: Estimated Void Medium Medium # Bowel Movements 0 1 Estimated Stool Amount Medium # Voids 2 2 Oxygen Devices in Use Now: None Neurology Exam: General: well nourished, well developed, frail man in no acute distress. Alert, cooperative, no apparent distress. HEENT: normocephalic, without obvious abnormality. Conjunctivae/corneas clear. Lungs: non-labored respirations with no wheezing or rhonchi CV: regular rate and rhythm, radial pulses 2+ symmetric. Psych: affect-broad and normal mood. Easy to establish rapport. Neurological examination: Mental status: awake; alert and oriented to person, place, time, & general circumstances. Normal speech and language. Cranial nerves: PERRL, EOM-I, no facial asymmetry. Motor (R/L): no abnormal movements, no pronator drift. He has atrophy of the FDI bilaterally. He has restricted range of motion in the left shoulder. He is weak to finger abduction 3/5 on the right and 4/5 on the left. He has normal strength throughout otherwise. Reflexes: symmetric 1+ throughout the upper and 2+ on the knees bilaterally. Absent ankle reflexes bilaterally. Sensation: Absent vibratory sensation at the great toes bilaterally. Normal propioception. Coordination: normal finger to nose and rapid alternating movements. Gait & Station: wide based. no ataxia. Mild spastic gait. Result Diagrams: 09/26/18 06:02 09/26/18 06:02 Additional Lab and Data: WBC: 6.3 hemoglobin: 13.4 Platelet: 232 INR: 1.06 Sodium: 133 Potassium: 4.1 Creatinine: 0.89 Glucose: 103 hemoglobin A1c: 5.6 Vitamin B12: 307 folate: 17.73 LDL: 79 HDL: 55.7 Diagnostic Imaging: Head CTA 09/24/2018: No evidence for hemodynamically significant carotid stenosis. No evidence for large vessel intracranial thrombus. Atrophy and moderate to severe chronic small vessel ischemic changes. Chronic ununited Type II odontoid Fracture. MRI brain without contrast completed on 09/25/2018: No evidence for acute intracranial abnormality. There is remote lacunar infarction with encephalomalacia in the subcortical frontal region on the right. Finding consistent with moderate to severe chronic small vessel ischemic changes Chronic ununited type II odontoid fracture. 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 Slight anterior angulation at the dens fracture and hypertrophy of the transverse ligament at C1 -2 articulation results in moderately severe acquired central canal stenosis, new compared with the 2003 MRI. I reviewed these images with the patient. TTE on 09/24/2018: Global left ventricular wall motion and contractility are within normal limits. Normal left ventricular systolic function. EF: 55-60%. interatrial septum appears intact without evidence of shunting. A PFO is not demonstrated. Assessment/Plan 1. Transient episodes of left hemiparesis, gait disturbance, facial weakness, and slurred speech He had a total of 2-3 episodes. His BP was in the lower range of normal. Orthostatic vitals were abnormal and positive for orthostatic hypotension. I suspect the cause of these symptoms are related to hypotension causing hypoperfusion in the right MCA vascular territory in the previous infarcted lesion. There is no new stroke on MRI. Continue Aspirin 81 mg daily. No need for statin therapy given the risk of myalgia. Continue Eliquis 2.5 mg twice daily due to history of atrial fibrillation. The atrial fibrillation diagnosis was confirmed at [facility] by staff and I personally discussed it with medical records at [facility] today. 2. Orthostatic hypotension- most likely exacerbated with the addition of tamsulosin. 3. Cervical spondylosis with acquired central canal stenosis (moderately severe at C1-2)- He declined a neuro-surgical or orthopedic consultation. I informed him that if the compression worsens, he can become quadriplegic. He verbalized understanding. He agreed to wear a soft cervical collar at all times except when he sleeping. He should go back to his surgeon and follow-up as an outpatient. 4. Malnutrition- defer to the primary team. He needs to increase his oral intake. He denied any night-sweats. He has no evidence of cancer at this time. He should follow-up with his PCP as outpatient. 5. Remote right MCA vascular territory stroke 6. Atrial fibrillation- Currently in normal sinus rhythm. He is on Eliquis. I spent 40 minutes examining the patient and discussing the treatment plan as mentioned above. The patient is considering moving to an assisted living facility as he no longer can care for his spouse alone. I encouraged him to meet with our general scrap worker or case fitter. Neurology will sign off, please contact me for any questions or concerns.
[2018-09-26 14:49] VITALS: BP 97/63
--- NOTE | 2018-09-26 22:15 | EEG ---
ELECTROENCEPHALOGRAPHY: DATE OF SERVICE: 09/26/18 - ROOM #443 DATE READ: 09/26/18 DURATION OF THE RECORDIN:11 - 08:36. ORDERING PROVIDER: Dirk Cardoso MD MEDICATIONS: 1. Eliquis. 2. Aspirin. 3. Bactrim. 4. Flomax. 5. Tylenol. CLINICAL PROBLEM: Intermittent left facial twitching and slurred speech. This EEG was obtained to evaluate for epileptiform abnormalities. CLINICAL STATE: Awake and drowsy. REPORT: The background consisted of mixed frequency slowing in the delta and theta range with appropriate organization and clearly defined anterior and posterior voltage gradients. There was waking slow background rhythm of 7.5 - 8 Hz, although seems symmetric bilaterally. Anteriorly, there was an expected pattern of lower voltage, irregular mixed faster frequency. Attenuation of the occipital rhythm accompanied drowsiness. The most prominent feature of this recording was intermittent paroxysms of polymorphic 2-4 Hz theta and delta slowing mostly in the right frontotemporal region maximal at F8 and T4. The slowing lasted 1-2 seconds. There were no epileptiform abnormalities. CLINICAL IMPRESSION: This is an abnormal awake and drowsy EEG due to diffuse background slowing with intermittent paroxysmal focal slowing in the right frontotemporal region. These findings are suggestive of a mild, nonspecific encephalopathy that can be seen in the setting of toxic metabolic disturbance, cerebral atrophy, or as a result of medication. In addition, the focal right frontotemporal slowing suggest a focal neuronal dysfunction in that region. There were no epileptiform abnormalities or electrographic seizures. [id number]/[facility] #: [id number] [facility]
--- NOTE | 2018-09-27 00:35 | DS ---
CC: Dr. Rodriguez; Dr. Swan * DISCHARGE SUMMARY: DATE OF ADMISSION: 09/24/18 DATE OF DISCHARGE: 09/26/18 PROVIDER: Francia Page NP CC: Dr Rodriguez, Dr Swan ATTENDING PHYSICIAN: Dr. Scott Cruz * (dictated by Francia Page NP). PRIMARY CARE PROVIDER: Dr. Rodriguez. UROLOGY PROVIDER: Dr. Swan. PRIMARY DIAGNOSIS: Orthostatic hypotension. SECONDARY DIAGNOSES: 1. Paroxysmal atrial fibrillation. 2. 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 3. Cervical laminectomy. 4. Urinary tract infection. 5. Urinary retention. DISCHARGE MEDICATIONS: 1. Eliquis 2.5 mg p.o. b.i.d. 2. Aspirin 81 mg p.o. daily. DISCHARGE DEVICE: Soft collar to be worn at all times except sleep. HOSPITAL COURSE: Mr. Amezquita is an 83-year-old male with a past medical history of postprocedural CVA after knee replacement in 2017; paroxysmal AFib, on Eliquis; cervical laminectomy; and orthostatic hypotension, who recently began treatment for urinary retention and actinomycosis UTI with Flomax and Bactrim respectively. He presented to the ED after getting out of bed and experiencing an episode of slurred speech, unsteady gait, left arm weakness, and blurry vision. Symptoms had resolved by the time the patient arrived in the ED. NIH Stroke scale was 0 on arrival, so the patient was not a candidate for tPA. Of note, the patient had similar episode the prior day that brought him to the ED that also resolved in a short time span. At that time, the patient refused to be admitted. On second presentation, the patient was amenable to further workup and the hospitalist team admitted him for workup of TIA versus orthostatic hypotension resulting in neurological symptoms. Of note , on the day after admission, the patient had another episode of slurred speech , left arm weakness and left facial droop while sitting in the chair. BP at that time was systolic 118; however, once again symptoms resolved within minutes. The patient had orthostatic vitals measured that day and were positive for a 20-point drop in systolic blood pressure from 122 to 102 from sitting to standing. Of note, the patient had been on Florinef briefly, but the patient discontinued it as he was having insomnia and increased lower extremity edema. The patient was evaluated by Dr. Cardoso in Neurology. He underwent diagnostic imaging, which included a head CTA, which showed no evidence of significant carotid stenosis or large vessel intracranial thrombus. It did show severe chronic small vessel ischemic changes. The patient also had an MRI of the brain, which showed no acute intracranial abnormalities. TTE showed an EF of 55% to 60% and no PFO. The patient also underwent an EEG, which did not show any acute findings. Dr. Cardoso suspects the cause of the symptoms is related to hypotension causing hypoperfusion in the right MCA territory of the previously infarcted lesion. As the patient does not have a history of CVA , we will add aspirin 81 mg daily in addition to his Eliquis 2.5 mg b.i.d. No statins will be given due to the patient's advanced age and risk for myalgia. The patient's LDL was 79. Also of note, cervical spine MRI demonstrated moderately severe acquired central canal stenosis particularly at C1- C2. The patient refused surgical consultation at this point and was counseled about the risks of not pursuing surgical intervention including the possibility of quadriplegia. The patient understood the risks and would not like to proceed with surgical consultation. He is amenable to wearing a soft collar at all times when awake and has been provided with the soft collar. I discussed the events of this hospitalization with Dr. Swan, who saw the patient as an outpatient. He agreed with discontinuing the patient's Flomax as it might be contributing to his hypotension as well as discontinuing the Bactrim as his last urine culture on 09/21/[address] Swan's office was negative. The patient has been asymptomatic and afebrile without leukocytosis. The patient will follow up with him as an outpatient and already has an appointment scheduled for . DISPOSITION: Stable for discharge to home with [facility] services. DIET: Heart-healthy diet. ACTIVITY: Activity as tolerated. The patient instructed to wear a soft collar as above. FOLLOWUP: The patient instructed to follow up with his primary care provider, Dr. Rodriguez in 4 to 7 days, as well as his urologist, Dr. Swan, at his already scheduled appointment on 09/28/18 at 2 p.m. TIME SPENT: Time spent for this discharge was 35 minutes. FRANCIA PAGE, OVERHEAD CRANE OPERATOR [id number]/[facility] #: [id number] [facility] H[facility]PITALHermelindo
== END 2018-09-26 16:14 | disposition home or self-care (01) ==
LOC: ED 09:19 → MEDTELE 12:09
PROVIDERS: ADMIT Internal Medicine; ATTEND Internal Medicine
DX: I95.1 Orthostatic hypotension (principal); I48.0 Paroxysmal atrial fibrillation; I97.821 Postprocedural cerebrovascular infarction following other surgery; Z96.659 Presence of unspecified artificial knee joint; M96.1 Postlaminectomy syndrome, not elsewhere classified; N39.0 Urinary tract infection, site not specified; R33.9 Retention of urine, unspecified; Z79.82 Long term (current) use of aspirin; R53.1 Weakness; R42 Dizziness and giddiness; Z88.0 Allergy status to penicillin; H53.8 Other visual disturbances; R29.90 Unspecified symptoms and signs involving the nervous system
CPT/HCPCS: 36415; 70496; 70498; 70551; 72141; 80048; 80053; 80061; 82607; 82746; 83036; 83921; 84484; 85025; 85610; 85730; 93005; 93306; 95816; 99283; A9270-GY; G0378; G8978-GP-CH; G8979-GP-CH; G8980-GP-CH; Q9967